=== PATIENT | male | born 1945 | race Two or more races ===

== ENCOUNTER 2018-10-22 18:21 | Emergency (ER) | payer MEDICARE, MEDICAID ==
[~2018-10-22] VITALS: Ht 170.2 cm; Wt 75.7 kg
[~2018-10-22 18:21] MED LIST: AMIO200T4 PO; AMOX-430 PO; ASPI-1152 PO; CARV3.122 PO; CHOL100044 PO; CLOP75TA15 PO; ESCI10TA PO; FOLI1TAB16 PO; PRED20TA PO; ROSU5TAB PO; SOLI10TA2 PO; TAMS0.4C34 PO; VALS80TA2 PO
--- NOTE | 2018-10-22 19:42 | NUR ---
BIB FAMILY FOR C/O FEVER AND DYSURIA. 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 AFEBRILE AT THIS TIME. + HYSTORY OF UTI. - HAMATURIA. FRANCES MELENDEZ AT THE BED SIDE.
--- NOTE | 2018-10-22 19:44 | NUR ---
URINE COLECTED AND SENT TO THE LAB
[2018-10-22 20:16] LABS: BASOPHILS # (AUTO) 0.1 /CMM (0.0-0.2); BASOPHILS % (AUTO) 0.4 % (0.0-2.0); EOSINOPHILS % (AUTO) 0.1 % (0.0-6.0); HEMATOCRIT 41 % (39-51); HEMOGLOBIN 13.7 g/dL (13.5-17.5); LYMPHOCYTES # (AUTO) 0.4 /CMM (0.8-4.8); LYMPHOCYTES % (AUTO) 2.3 % (20.0-44.0); MEAN CORPUSCULAR HGB CONC 33 g/dl (31.0-36.0); MEAN CORPUSCULAR VOLUME 91 fL (80-96); MONOCYTES # (AUTO) 0.6 /CMM (0.1-1.30); MONOCYTES % (AUTO) 3.9 % (2.0-12.0); NEUTROPHILS % (AUTO) 93.3 % (43.0-81.0); PLATELET COUNT (AUTO) 211 /CMM (150-450); RED BLOOD CELL COUNT(AUTO) 4.54 MIL/uL (4.5-6.0)
[2018-10-22 20:17] LABS: APPEARANCE,URINE Clear (CLEAR); BILIRUBIN,URINE Negative (NEGATIVE); BLOOD, URINE Trace-lysed Ery/uL (NEGATIVE); COLOR,URINE Yellow (YELLOW); KETONES,URINE Negative (NEGATIVE); LEUKOCYTE ESTERASE ,URINE Moderate (NEGATIVE); NITRITE, URINE Negative (NEGATIVE); PH,URINE 5.5 (5.0-8.0); PROTEIN,URINE 100 mg/dl (NEGATIVE); UGLUCOSE Negative (NEGATIVE); UROBILINOGEN,URINE 0.2 EU/dL (0.2)
[2018-10-22 20:22] LABS: BACTERIA,URINE Many /HPF (None Seen); RBC,URINE 0-2 /HPF (0-2); SQUAMOUS EPITHELIAL CELL,UR Few /HPF (None Seen); WBC,URINE TOO NUMEROUS TO COUN /HPF (0-3)
[2018-10-22 20:23] LABS: CALCIUM, SERUM 9.2 mg/dL (8.5-10.1); CARBON DIOXIDE 29 mmol/L (21-32); CHLORIDE 104 mmol/L (98-107); CREATININE 1.5 mg/dL (0.6-1.3); GLUCOSE 90 mg/dL (74-106); POTASSIUM 4.5 mmol/L (3.5-5.1); SODIUM SERUM 142 mmol/L (136-145); UREA NITROGEN, BLOOD 27 mg/dL (7-18)
[2018-10-22] MEDS ORDERED: CEFTRIAXONE 1GM BAG (ER ONLY) 50 ML IV ONE (21:29)
[2018-10-22] MEDS ORDERED: IV NS 0.9% 1,000 ML BAG IV ONE (21:30)
[2018-10-22] MEDS ORDERED: CEFTRIAXONE 1 G in IV D5W 50 ML IV ONE (21:30)
--- NOTE | 2018-10-22 22:29 | NUR ---
Patient discharged to home in stable condition.RX AND Written and verbal after care instructions given. Patient / family verbalized understanding of instruction.
[2018-10-22 22:35] VITALS: BP 123/73
== END 2018-10-22 22:38 | disposition home or self-care (01) ==
LOC: ER 18:21
DX: N39.0 Urinary tract infection, site not specified (principal); I10 Essential (primary) hypertension; Z98.890 Other specified postprocedural states; Z79.82 Long term (current) use of aspirin
CPT/HCPCS: 36415; 80048; 81001; 85025; 87086; 96365; 99283; J0696 ×2; J7030; J7060; 81000-TC

== ENCOUNTER 2020-12-20 19:16 | Emergency (ER) | payer MEDICARE, MEDICAID ==
[~2020-12-20] VITALS: Ht 157.5 cm; Wt 68.0 kg
[~2020-12-20 19:16] MED LIST changes: -AMIO200T4 PO; +AMIO200T5 PO; -ASPI-1152 PO; +ASPI-1420 PO
--- NOTE | 2020-12-20 19:57 | NUR ---
PATIENT STATES, "I AM GOING TO LEAVE AND COME BACK TOMORROW"
== END 2020-12-20 20:18 | disposition left against medical advice (07) ==
LOC: ER 19:17
DX: Z53.21 Procedure and treatment not carried out due to patient leaving prior to being seen by health care provider (principal); R10.11 Right upper quadrant pain; I10 Essential (primary) hypertension; Z98.890 Other specified postprocedural states

== ENCOUNTER 2021-02-12 05:06 | Inpatient (IN) | payer MEDICARE, OTHER ==
[~2021-02-12] VITALS: Ht 170.2 cm; Wt 77.1 kg
--- NOTE | 2021-02-12 05:13 | NUR ---
BIBRA 89 FROM HOME C/O VOMITING X10HRS KITCHEN OPERATOR "DARK RED". +GEN ABD PAIN. GIVEN 4MG ZOFRAN KITCHEN OPERATOR BY RA. PT A/OX4. ON O2 4LPM VIA N/C; TOLERATING AT 97%
[2021-02-12] MEDS ORDERED: ACETAMINOPHEN 650 MG/SUPP.RECT RC ONE ×2 (05:22→05:30)
[2021-02-12] MEDS ORDERED: ONDANSETRON HCL/PF 4 MG/2 ML VIAL ONE (05:22)
--- NOTE | 2021-02-12 05:25 | NUR ---
MRSA SWAB COLLECTED AND SENT TO LAB. EKG DONE.
[2021-02-12] MEDS ORDERED: IV NS 0.9% 500 ML BAG IV ONE (05:30)
[2021-02-12] MEDS ORDERED: ONDANSETRON HCL/PF 4 MG/2 ML VIAL IVP ONE (05:30)
--- NOTE | 2021-02-12 05:30 | NUR ---
INITIATED RAC #20G; PATENT AND INTACT. BLOODWORK DRAWN. COVID SWAB COLLECTED VIA EPILEPSY PHYSICIAN AND SENT TO LAB
[2021-02-12 05:39] LABS: BASOPHILS % (AUTO) 0.2 % (0.0-2.0); HEMATOCRIT 22 % (39-51); LYMPHOCYTES # (AUTO) 0.3 K/uL (0.8-4.8); LYMPHOCYTES % (AUTO) 5.1 % (20.0-44.0); MEAN CORPUSCULAR HGB CONC 33 g/dl (31.0-36.0); MEAN CORPUSCULAR VOLUME 85 fL (80-96); MONOCYTES # (AUTO) 0.2 K/uL (0.1-1.30); MONOCYTES % (AUTO) 3.5 % (2.0-12.0); NEUTROPHILS # (AUTO) 6.2 K/uL (1.8-8.9); NEUTROPHILS % (AUTO) 91.2 % (43.0-81.0); PLATELET COUNT (AUTO) 199 K/uL (150-450); RED BLOOD CELL COUNT(AUTO) 2.53 MIL/uL (4.5-6.0); WHITE BLOOD COUNT (AUTO) 6.8 K/uL (4.3-11.0)
--- NOTE | 2021-02-12 05:40 | NUR ---
LAB AID AT BEDSIDE
--- NOTE | 2021-02-12 05:43 | NUR ---
PT TAKEN TO CT
--- NOTE | 2021-02-12 05:47 | NUR ---
HEMOGLOBIN 7.0
--- NOTE | 2021-02-12 05:55 | NUR ---
BROUGHT BACK FROM CT
[2021-02-12 05:57] LABS: CALCIUM, SERUM 8.4 mg/dL (8.5-10.1); CARBON DIOXIDE 27 mmol/L (21-32); CHLORIDE 103 mmol/L (98-107); CREATININE 1.6 mg/dL (0.6-1.3); GLUCOSE 113 mg/dL (74-106); POTASSIUM 4.9 mmol/L (3.5-5.1); SODIUM SERUM 138 mmol/L (136-145); UREA NITROGEN, BLOOD 22 mg/dL (7-18)
--- NOTE | 2021-02-12 06:05 | NUR ---
COLLECTED PT'S URINE AND SENT TO LAB. AT BEDSIDE
[2021-02-12 06:12] LABS: ALANINE AMINOTRANSFERASE 13 U/L (12-78); ALBUMIN 2.7 g/dL (3.4-5.0); ALKALINE PHOSPHATASE 92 U/L (46-116); ASPARTATE AMINOTRANSFERASE 16 U/L (15-37); BILIRUBIN,DIRECT 0.3 mg/dL (0.0-0.2); BILIRUBIN,TOTAL 0.9 mg/dL (0.2-1.0); LIPASE 50 U/L (73-393); TOTAL PROTEIN, SERUM 6.3 g/dL (6.4-8.2)
[2021-02-12 06:15] LABS: BILIRUBIN,URINE Negative (NEGATIVE); COLOR,URINE YELLOW (YELLOW); LEUKOCYTE ESTERASE ,URINE Trace (NEGATIVE); NITRITE, URINE Negative (NEGATIVE); PH,URINE 5.5 (5.0-8.0); PROTEIN,URINE Negative (NEGATIVE); UGLUCOSE Negative (NEGATIVE); UROBILINOGEN,URINE 0.2 EU/dL (0.2)
--- NOTE | 2021-02-12 06:25 | NUR ---
CALLED GAGANDEEP REGARDING CT.
[2021-02-12 06:44] LABS: BAND % (MANUAL) 2 % (0.0-5.0); LYMPHOCYTES % (MANUAL) 3 % (16-48); METAMYELOCYTES % 1 % (0-0); MONOCYTES % (MANUAL) 5 % (0-11.0); NEUTROPHILS % (MANUAL) 89 (42-76)
[2021-02-12 06:48] LABS: BACTERIA,URINE Few /HPF (None Seen); SQUAMOUS EPITHELIAL CELL,UR Few /HPF (None Seen); YEAST,URINE Few /HPF (None Seen)
[2021-02-12] MEDS ORDERED: IOHEXOL-350 100 ML VIAL IV ONE (07:06)
[2021-02-12] MEDS ORDERED: CT SWABBABLE VALVE TRANS SET 1 EA INFUS.SET MC ONE (07:06)
[2021-02-12] MEDS ORDERED: IV NS 0.9% 250 ML IV ONE (07:06)
[2021-02-12] MEDS ORDERED: CLINDAMYCIN 900 MG in IV D5W 100 ML IV ONE (08:00)
[2021-02-12] MEDS ORDERED: PIPERACILLIN /TAZOBACTAM 3.375 G in IV D5W 50 ML IV ONE (08:00)
[2021-02-12] MEDS ORDERED: PANTOPRAZOLE 40 MG VIAL IV ONE (08:30)
[2021-02-12] MEDS ORDERED: APIX2.5T PO (08:50)
[2021-02-12] MEDS ORDERED: AMLO-212 PO (08:50)
[2021-02-12] MEDS ORDERED: LISI40TA13 PO (08:50)
[2021-02-12] MEDS ORDERED: FINA5TAB11 PO (08:50)
[2021-02-12] MEDS ORDERED: HYDR100T27 PO (08:50)
[2021-02-12] MEDS ORDERED: ALFU10TA10 PO (08:50)
[2021-02-12] MEDS ORDERED: GABA-532 PO (08:50)
[2021-02-12] MEDS ORDERED: PANTOPRAZOLE 40 MG VIAL ONE (09:28)
[2021-02-12] MEDS ORDERED: Z GUARD REMEDY 2 OZ OINT TP PRN (10:00)
[2021-02-12] MEDS ORDERED: ONDANSETRON HCL/PF 4 MG/2 ML VIAL IVP PRN (10:00)
[2021-02-12] MEDS ORDERED: PANTOPRAZOLE 40 MG VIAL IV SCH (10:00)
[2021-02-12] MEDS ORDERED: VANCOMYCIN 1 GM in IV D5W 250 ML IV SCH (12:00)
--- NOTE | 2021-02-12 12:20 | NUR ---
BLOOD TRANSFUSION STARTED AND VERIFIED BY 2 RN.
[2021-02-12] MEDS ORDERED: TRAMADOL HCL 50 MG TABLET ONE (16:50)
[2021-02-12] MEDS ORDERED: FAMOTIDINE/PF INJ 20 MG/2 ML VIAL IV ONE ×2 (17:00→19:52)
[2021-02-12] MEDS: TRAMADOL HCL 50 MG TABLET PO SCH ×2 (17:00→19:11)
--- NOTE | 2021-02-12 17:30 | NUR ---
going to 112.1
--- NOTE | 2021-02-12 17:45 | NUR ---
REPORT GIVEN TO ALBAN DAY FOR TG
--- NOTE | 2021-02-12 18:15 | NUR ---
INTERMEDIATE CARD TENDER OPENING NOTE RECEIVED PATIENT FROM ER - PATIENT CAME FROM HOME COMPLAINING OF N/V X2 DAYS. PATIENT HAS BEEN COUGHING UP BLOOD. PATIENT IS CURRENTLY STABLE, A/O X4. SPEAKS CLEAR KINYARWANDA. VITALS 118/48 HR 93 TEMP 99.2 O2 95%. IV ACCESS TO LEFT AND RIGHT AC #20 - INTACT AND PATENT. NO BLEDSOE NOTED. PATIENT USES URINAL. SAFETY MEASURES IN PLACE. CALL LIGHT WITHIN REACH. WILL ENDORSE TO CONSULTING ENGINEER FOR TG. Addendum: 02/12/21 at 1921 by ALBAN STILES RN TELE ADMISSION NOTE
[2021-02-12 18:27] VITALS: BP 119/48
[2021-02-12] MEDS: PIPERACILLIN /TAZOBACTAM 4.5 G in IV D5W 50 ML IV SCH ×2 (19:10→23:07)
--- NOTE | 2021-02-12 19:10 | NUR ---
RN NOTE RECEIVED PATIENT IN BED RESTING ALERT ORIENTED X4 VERBALLY RESPONSIVE,ESTONIAN SPEAKING, LITTLE MONGOLIAN ON 5L OXYGEN VIA NASAL CANNULA, O2:92% IV SITE IS ON RIGHT AC AND LEFT FOREARM INTACT PATENT,CONTIENT TO BOWEL/BLADDER SAFETY MEASURE IMPLEMENT,CALL LIGHT WITHIN REACH,BED IN LOW POSITION AND LOCKED CONTINUE TO ,MONITOR.
[2021-02-12] MEDS: IV NS 0.9% 1,000 ML IV PRN (19:35)
[2021-02-12] MEDS: GABAPENTIN 100 MG CAPSULE PO SCH (19:54)
[2021-02-12 21:21] LABS: BASOPHILS % (AUTO) 0.1 % (0.0-2.0); HEMATOCRIT 22 % (39-51); HEMOGLOBIN 7.2 g/dL (13.5-17.5); LYMPHOCYTES # (AUTO) 0.4 K/uL (0.8-4.8); MEAN CORPUSCULAR HGB CONC 33 g/dl (31.0-36.0); MEAN CORPUSCULAR VOLUME 86 fL (80-96); MONOCYTES # (AUTO) 0.2 K/uL (0.1-1.30); MONOCYTES % (AUTO) 4.2 % (2.0-12.0); NEUTROPHILS # (AUTO) 5.3 K/uL (1.8-8.9); NEUTROPHILS % (AUTO) 88.7 % (43.0-81.0); PLATELET COUNT (AUTO) 179 K/uL (150-450); RED BLOOD CELL COUNT(AUTO) 2.55 MIL/uL (4.5-6.0)
[2021-02-12 21:22] VITALS: BP 138/63
[2021-02-12 21:28] LABS: CALCIUM, SERUM 7.8 mg/dL (8.5-10.1); CARBON DIOXIDE 26 mmol/L (21-32); CHLORIDE 101 mmol/L (98-107); CREATININE 1.5 mg/dL (0.6-1.3); GLUCOSE 112 mg/dL (74-106); POTASSIUM 4.9 mmol/L (3.5-5.1); SODIUM SERUM 134 mmol/L (136-145); UREA NITROGEN, BLOOD 22 mg/dL (7-18)
[2021-02-12] MEDS: ACETAMINOPHEN 325 MG TABLET PO PRN (21:31)
--- NOTE | 2021-02-12 22:00 | NUR ---
RN NOTE RECEIVED A CALL FROM DR RENETTA ASHTON RECOVERY COORDINATOR FOR STAT BMP,CBC AND TROPONIN LEVEL AND ALSO FOR RECOVERY COORDINATOR CONSULT NOTED AND CARRIED OUT.
[2021-02-12] MEDS: VANCOMYCIN 0.75 GM in IV D5W 250 ML IV SCH (22:46)
--- NOTE | 2021-02-12 23:00 | NUR ---
RN NOTE RECEIVED A CALL FROM LAB FOR CRITICAL LAB RESULTS TROPONIN 0.503 TRADING DOWN COMPARE AT 14.3 IT WAS 0.621 NOTIFIED MD CONTINUE TO MONITOR.
--- NOTE | 2021-02-12 23:56 | NUR ---
RN NOTE PATIENT IS NPO AFTER MIDNIGHT FOR EGD TOMORROW CONTINUE TO MONITOR.
[2021-02-13] VITALS (26 sets, daily range): BP systolic 99–157; BP diastolic 44–91
[2021-02-13 04:51] LABS: ABG BASE EXCESS -7.8 mmol/L; ABG OXYGEN SATURATION 91.3 % (92.0-98.5); ABG PCO2 40.1 mmHg (35.0-45.0); ABG PH 7.278 (7.350-7.450); ABG PO2 74.3 mmHg (75.0-100.0); AaDO2 598.6 mmHg; COHb 0.7 % (0.5-1.5); MetHb 0.2 % (0.0-1.5); O2Hb 90.5 % (94.0-97.0); SITE, ABG Left Radial
[2021-02-13] MEDS: PIPERACILLIN /TAZOBACTAM 4.5 G in IV D5W 50 ML IV SCH (05:00)
--- NOTE | 2021-02-13 05:09 | NUR ---
COMPLAINT SPECIALIST NOTES PTS NOTED WITH DESATURATION WITH 80S , ON 5 LITERS OF 02 ,RT AT BEDSIDE PTS WAS PLACE ON NON REBREATHER MASK SATING 80S SPOKE TO DR CAMACHO RADIO TIME SALESPERSON RELAYED PTS CONDITION ABG RELAYED - METABOLIC ACIDOSIS WITH ORDER RT REC FOR HIGH FLOW 30LPM 100%FIO2 ORDER NOTED AND CARRIED OUT MAGGIE MCCAIN TO MONITOR PTS.CBC CMP IN AM
--- NOTE | 2021-02-13 05:15 | NUR ---
RT APPROX AT 04:15, RT CALLED TO PT ROOM BECAUSE PT DESATURATING TO 85-87%. PT ON NRB 15LPM SPO2 90-92%. RAPID RESPONSE CALLED AT 04:30 DUE TO PT DESAT TO 85%. ABG AND ORDER FOR HIGH FLOW NC OBTAINED. RN MICHELLE AT BEDSIDE. PT PLACED ON HFNC 30LPM 100%, SPO2 96-97%.
--- NOTE | 2021-02-13 05:39 | NUR ---
RN NOTE AT 4:15 AM PATIENT CALLED FOR ASSIST PATIENT DESADURATTING ABOUT 76% ON 5L OXYGEN HR UP TO 133 CHANGED POSITION ASSISTED TO SITTING UP RIGHT CHANGED TO NON REABREATHER MASK STILL O2:85% CALLED RAPID RESPOND CALLED DR Ramos ORDERED ABG BLOOD GAS NOTIFIED THE RESULT ORDERED HIGH FLOW OXYGEN AT 5:00 AM PATIENT PUT IN HIGH FLOW 30L OXYGEN FIO2:100% O2:96% CONTINUE TO MONITOR.
[2021-02-13 06:49] LABS: BASOPHILS % (AUTO) 0.2 % (0.0-2.0); HEMATOCRIT 21 % (39-51); LYMPHOCYTES # (AUTO) 0.3 K/uL (0.8-4.8); LYMPHOCYTES % (AUTO) 5.6 % (20.0-44.0); MEAN CORPUSCULAR HGB CONC 33 g/dl (31.0-36.0); MEAN CORPUSCULAR VOLUME 86 fL (80-96); MONOCYTES # (AUTO) 0.3 K/uL (0.1-1.30); MONOCYTES % (AUTO) 4.8 % (2.0-12.0); NEUTROPHILS # (AUTO) 5.4 K/uL (1.8-8.9); NEUTROPHILS % (AUTO) 89.4 % (43.0-81.0); PLATELET COUNT (AUTO) 177 K/uL (150-450); RED BLOOD CELL COUNT(AUTO) 2.41 MIL/uL (4.5-6.0)
--- NOTE | 2021-02-13 06:57 | NUR ---
RN NOTE PATIENT REMAINS ON ALERT ORIENTED X4 VERBALLY RESPONSIVE ON HIGH FLOW OXYGEN 30L FIO2:100% O2:98% PT IS NPO FOR TODAY EGD ENDORSE NEXT COMING SHIFT FOR CONTINUATION OF CARE
[2021-02-13 07:12] LABS: CHOLESTEROL 81 mg/dL (<200); HDL CHOLESTEROL 26 mg/dL (40-60); LDL 45 mg/dL (0-99); TRIGLYCERIDES 74 mg/dL (30-150)
--- NOTE | 2021-02-13 07:40 | NUR ---
RN Note: Pt received alert awake oriented x4. On high flow 30 l, settings tolerating well. HOB elevated. Brass Pourer s/s breathing distress noted in sitting position. Noted pt was screaming on nursing staff regarding waiting to see his doctor since last night. Explained pt doctor's will come on round during morning. If its urgent will call to notify. Safety measures observed. Urinal at bedside. Call light within reach. Encourage to use call light for assistance.
[2021-02-13 08:04] LABS: HEMOGLOBIN 6.9 g/dL (13.5-17.5)
--- NOTE | 2021-02-13 08:10 | NUR ---
RN Note: Received call from GI lab regarding current status, plan for EGD. Informed anesthesiologist regarding rapid response around 4:20am for desaturation, currently on high flow. Per anesthesiologist, not stable for EGD this time. Will discuss with PCP.
[2021-02-13] MEDS ORDERED: Medication Not On Formulary EA (Rosuvastatin Calcium (Crestor) 10 MG) PO SCH (09:00)
[2021-02-13] MEDS ORDERED: AMIODARONE HCL 200 MG TABLET PO SCH (09:00)
--- NOTE | 2021-02-13 09:20 | NUR ---
RN Note: 08:06am, Received call from lab hgb 6.9. Called epic regarding low Hgb and to notify that pt requesting to MD. As pt currently on NPO, will request for IV meds for pain management. Explain pt. Pt verbalized all he needs to talk to his doctor before any medication or nursing care. 0820am: Called Epic, waiting for MD response 0845am: Called Epic, waiting for MD response. Around 09:[address] Pedraza & discussed plan of care. Received new orders [place] 5/325mg PO Q4H PRN. EGD cancelled. Transfuse 1 unit PRBC. Consent signed by the pt & signed by Dr. Pedraza per ROSALEE charge nurse. Pt agreed plan.
[2021-02-13] MEDS: PANTOPRAZOLE 40 MG VIAL IV SCH (09:40)
[2021-02-13] MEDS: LISINOPRIL (20MG) 20 MG TABLET PO SCH (10:00)
[2021-02-13] MEDS: HYDROCODONE/APAP 5/325MG TABLET PO PRN (10:01)
[2021-02-13] MEDS: ESCITALOPRAM OXALATE (10 MG) 10 MG TABLET PO SCH (10:01)
[2021-02-13] MEDS: FOLIC ACID 1 MG TABLET PO SCH (10:01)
[2021-02-13] MEDS: CHOLECALCIFEROL 1,000 UNIT TABLET (VIT D3) PO SCH (10:01)
[2021-02-13 10:02] LABS: ALANINE AMINOTRANSFERASE 10 U/L (12-78); ALBUMIN 2.4 g/dL (3.4-5.0); ALKALINE PHOSPHATASE 71 U/L (46-116); ASPARTATE AMINOTRANSFERASE 18 U/L (15-37); CALCIUM, SERUM 8.1 mg/dL (8.5-10.1); CARBON DIOXIDE 24 mmol/L (21-32); CHLORIDE 102 mmol/L (98-107); CREATININE 1.8 mg/dL (0.6-1.3); GLUCOSE 115 mg/dL (74-106); MAGNESIUM 1.7 mg/dL (1.8-2.4); PHOSPHORUS 4.3 mg/dL (2.5-4.9); POTASSIUM 4.7 mmol/L (3.5-5.1); SODIUM SERUM 137 mmol/L (136-145); TOTAL PROTEIN, SERUM 5.8 g/dL (6.4-8.2); UREA NITROGEN, BLOOD 24 mg/dL (7-18)
[2021-02-13] MEDS: GABAPENTIN 100 MG CAPSULE PO SCH ×2 (10:02→17:00)
[2021-02-13] MEDS: AMLODIPINE BESYLATE 5 MG TABLET PO SCH (10:02)
[2021-02-13] MEDS: ATORVASTATIN 10 MG TABLET PO SCH (10:02)
[2021-02-13] MEDS: FINASTERIDE (5 MG) 5 MG TABLET PO SCH (10:02)
--- NOTE | 2021-02-13 10:20 | NUR ---
RN Note: Per Mary Kay martinez RN, transfer pt to ICU as received orders from Dr. Coles. AM meds given as ordered. Pt transferred to ICU per ACLS protocol with all belongings alert awake oriented X4. Independent with bed mobility. Report given by Mary Kay martinez RN to ICU assigned nurse.
--- NOTE | 2021-02-13 10:45 | NUR ---
PATIENT TRANSFERRED FROM [facility] TO ACTIVE HEMATESIS, WORSENING CXR AND FOR CLOSE MONITORING PER DR. WOLF. PATIENT AWAKE, ORIENTED, ON HIGH FLOW OXYGEN 30L/MIN AT 90% FIO2. MONITOR SHOWS CONTROLLED AFIB 80'S. KEPT HOB ELEVATED, ASPIRATION PRECAUTIONS INPLACED.
--- NOTE | 2021-02-13 11:06 | NUR ---
PRBC ONE UNIT STARTED.
--- NOTE | 2021-02-13 11:28 | NUR ---
RT Pt received awake and alert on Vapotherm 30L and 90%, pt titrated to 6L nasal cannula and is tolerating well with adequate SpO2 of 92-93%. No SOB or respiratory distress noted. Addendum: 02/13/21 at 1149 by ADRIAN TONY RT Amended: Links added.
--- NOTE | 2021-02-13 11:30 | NUR ---
NIXON RT AT BEDSIDE. PATIENT SPO2 98% ON HIGH FLOW. PATIENT PLACED ON 6 L N/C-KEPT ON HIGH FOWLERS POSITION. SPO2 REMAINS >93%. DR. WOLF MADE AWARE. OKAY TO TITRATE O2 TO KEEP SATS > 92. WILL CONTINUE TO MONITOR CLOSELY.
[2021-02-13] MEDS: methylPREDNISolone SOD SUCC 125 MG/2ML VIAL IV SCH ×2 (11:35→17:00)
[2021-02-13] MEDS: IV NS 0.9% 1,000 ML IV PRN (11:36)
[2021-02-13] MEDS: VANCOMYCIN 0.75 GM in IV D5W 250 ML IV SCH (11:38)
[2021-02-13] MEDS: PIPERACILLIN /TAZOBACTAM 3.375 G in IV D5W 100 ML IV SCH ×2 (11:55→19:48)
[2021-02-13 12:00] LABS: LYMPHOCYTES % (MANUAL) 8 % (16-48); NEUTROPHILS % (MANUAL) 86 (42-76)
[2021-02-13 12:01] LABS: REACTIVE LYMPHOCYTES 6 % (0-0)
--- NOTE | 2021-02-13 12:05 | NUR ---
PATIENT COMPLAINED OF SEVERE NECK PAIN RADIATING TO RIGHT SHOULDER. PATIENT STATED CHRONIC PAIN ON THE SAME AREA. PAIN MED GIVEN ONLY GAVE HIM [address] ESCALANTE AND OBTAINED ORDER FOR MORPHINE IV PRN.
[2021-02-13] MEDS: MORPHINE SULFATE INJ 2 MG/ML DISP.SYRIN IV PRN ×2 (12:15→17:53)
--- NOTE | 2021-02-13 12:30 | NUR ---
ONGOING BLOOD TRANSFUSION-NO TRANSFUSION REACTION NOTED.
--- NOTE | 2021-02-13 14:00 | NUR ---
BLOOD TRANSFUSION COMPLETED WITHOUT ADVERSE REACTION NOTED. VITALS STABLE. NO SOB. SEEN BY DR. CARDOZO FOR NEPHRO CONSULT.
--- NOTE | 2021-02-13 16:00 | NUR ---
NO ACUTE DISTRESS. RESPIRATIONS UNLABORED. STABLE ON O2 AT 6L N/C-SPO2 - 94%. SLEEPING INTERMITTENTLY.
[2021-02-13 16:36] LABS: BASOPHILS % (AUTO) 0.1 % (0.0-2.0); HEMATOCRIT 25 % (39-51); HEMOGLOBIN 8.2 g/dL (13.5-17.5); LYMPHOCYTES # (AUTO) 0.3 K/uL (0.8-4.8); LYMPHOCYTES % (AUTO) 6.2 % (20.0-44.0); MEAN CORPUSCULAR HGB CONC 33 g/dl (31.0-36.0); MEAN CORPUSCULAR VOLUME 87 fL (80-96); MONOCYTES # (AUTO) 0.1 K/uL (0.1-1.30); MONOCYTES % (AUTO) 1.9 % (2.0-12.0); NEUTROPHILS # (AUTO) 4.8 K/uL (1.8-8.9); NEUTROPHILS % (AUTO) 91.8 % (43.0-81.0); PLATELET COUNT (AUTO) 180 K/uL (150-450); RED BLOOD CELL COUNT(AUTO) 2.85 MIL/uL (4.5-6.0); WHITE BLOOD COUNT (AUTO) 5.2 K/uL (4.3-11.0)
[2021-02-13] MEDS: TRAMADOL HCL 50 MG TABLET PO SCH (17:00)
[2021-02-13 17:32] LABS: BAND % (MANUAL) 3 % (0.0-5.0); LYMPHOCYTES % (MANUAL) 7 % (16-48); METAMYELOCYTES % 1 % (0-0); MONOCYTES % (MANUAL) 1 % (0-11.0); NEUTROPHILS % (MANUAL) 88 (42-76)
--- NOTE | 2021-02-13 18:00 | NUR ---
POST TRANSFUSION H/H 8.. PATIENT COMPLAINED OF NECK PAIN-01/05. MORPHINE 2 MG IV ORDERED PRN GIVEN.
[2021-02-13 18:54] LABS: BILIRUBIN,URINE NEGATIVE (NEGATIVE); COLOR,URINE YELLOW (YELLOW); LEUKOCYTE ESTERASE ,URINE NEGATIVE (NEGATIVE); NITRITE, URINE NEGATIVE (NEGATIVE); PH,URINE 5.5 (5.0-8.0); PROTEIN,URINE 30 mg/dl (NEGATIVE); UGLUCOSE NEGATIVE (NEGATIVE); UROBILINOGEN,URINE 0.2 EU/dL (0.2)
--- NOTE | 2021-02-13 19:00 | NUR ---
SLEEPING. NO SIGNS OF DISTRESS. ON AND OFF HEMOPTYSIS IN SMALL AMOUNT. VITALS STABLE. SPO2 94-96% ON N/C.
[2021-02-13 19:04] LABS: BACTERIA,URINE None seen /HPF (None Seen); RBC,URINE 0-2 /HPF (0-2); SQUAMOUS EPITHELIAL CELL,UR 0-2 /HPF (None Seen); WBC,URINE 0-2 /HPF (0-3)
[2021-02-13 19:05] LABS: URINE AMORPHOUS URATE Moderate /HPF (None Seen)
[2021-02-13 19:14] LABS: CREATININE, URINE 133.4 MG/DL (30.0-125.0); URINE SODIUM, RANDOM < 5 mmol/l (40-220); URINE TOTAL PROTEIN 106.3 mg/dL (0-11.9)
--- NOTE | 2021-02-13 19:30 | NUR ---
RN NOTE RECEIVD PATIENT IN R/O COVID ISOLATION. PATIENT RESTING IN BED. A/OX4. ON OXYGEN 6L/MIN VIA NASAL CANNULA. O2 SAT 94%. RESPIRATIONS ARE EVEN AND UNLABORED. NO S/SS OB NOTED. NO C/O PA9ON AT THIS TIME. EXTERNAL TELE MONITOR READS CONTROLLED AFIB HR 62. IN NO APPARENT DISTRESS. IV ACCESS IN LFA#18 LEAKING AND INFILTRATED, REMOVED AND PLACE A L HAND #20. RAC#20 RUNNING NS@75ML/HR. BED IS LOW AND LOCKED, HOB ELEVATED IN SEMI FOWLERS, SIDE RAILS UP X2, CALL LIGHT WITHIN REACH. WILL CONTINUE TO MONITOR THROUGHOUT SHIFT.
--- NOTE | 2021-02-13 23:08 | NUR ---
RN NOTE INFORMED BY ISOTOPE TECHNICIAN THAT PATIENT IS HAVING EPISODES OF BRADYCARDIA HR DOWN TO 47. NOT SUSTAINED, INCREASED BACK TO LOW 60S.
[2021-02-14] VITALS (25 sets, daily range): BP systolic 100–136; BP diastolic 42–70
[2021-02-14] MEDS: methylPREDNISolone SOD SUCC 125 MG/2ML VIAL IV SCH ×4 (00:22→17:01)
[2021-02-14] MEDS: PIPERACILLIN /TAZOBACTAM 3.375 G in IV D5W 100 ML IV SCH ×3 (04:07→19:48)
[2021-02-14] MEDS: TRAMADOL HCL 50 MG TABLET PO SCH ×2 (04:18→15:28)
--- NOTE | 2021-02-14 04:19 | NUR ---
RN NOTE DID NOT ADMINISTER TRAMADOL 50MG . PATIENT STATES HE IS NOT IN PAIN. DOES NOT WANT PAIN MEDICATION AT THIS TIME.
[2021-02-14 05:44] LABS: HEMATOCRIT 24 % (39-51); LYMPHOCYTES # (AUTO) 0.3 K/uL (0.8-4.8); LYMPHOCYTES % (AUTO) 5.7 % (20.0-44.0); MEAN CORPUSCULAR HGB CONC 33 g/dl (31.0-36.0); MEAN CORPUSCULAR VOLUME 88 fL (80-96); MONOCYTES # (AUTO) 0.2 K/uL (0.1-1.30); NEUTROPHILS % (AUTO) 91.3 % (43.0-81.0); PLATELET COUNT (AUTO) 183 K/uL (150-450); RED BLOOD CELL COUNT(AUTO) 2.77 MIL/uL (4.5-6.0); WHITE BLOOD COUNT (AUTO) 5.5 K/uL (4.3-11.0)
[2021-02-14 05:58] LABS: ALANINE AMINOTRANSFERASE 14 U/L (12-78); ALBUMIN 2.4 g/dL (3.4-5.0); ALKALINE PHOSPHATASE 65 U/L (46-116); ASPARTATE AMINOTRANSFERASE 21 U/L (15-37); BILIRUBIN,TOTAL 0.9 mg/dL (0.2-1.0); CALCIUM, SERUM 8.4 mg/dL (8.5-10.1); CARBON DIOXIDE 25 mmol/L (21-32); CHLORIDE 102 mmol/L (98-107); CREATININE 1.8 mg/dL (0.6-1.3); GLUCOSE 134 mg/dL (74-106); MAGNESIUM 2.2 mg/dL (1.8-2.4); PHOSPHORUS 4.8 mg/dL (2.5-4.9); POTASSIUM 5.4 mmol/L (3.5-5.1); SODIUM SERUM 134 mmol/L (136-145); TOTAL PROTEIN, SERUM 6.5 g/dL (6.4-8.2); UREA NITROGEN, BLOOD 33 mg/dL (7-18)
[2021-02-14 06:02] LABS: IRON, SERUM 32 ug/dl (50-175); TOTAL IRON BINDING CAPACITY 196 ug/dl (250-450)
--- NOTE | 2021-02-14 06:43 | NUR ---
RN NOTE R/O COVID ISOLATION. RESTING IN BED. A/OX4. REMAINS ON OXYGEN 6L/MIN VIA NASAL CANNULA. O2 SAT INCREASED TO 96-100%. NO RESP DISTRESS. NO SOB. CONTINUES TO COUGH BRIGHT RED BLOOD, . NO PAIN. TELE MONITOR READS CONTROLLED AFIB HR 62, THERE WAS EPISODES OF JOVANAN TO 47 BUT NOT SUSTAINED.NO DISTRESS. IV IN RAC#20 CURRENTLY RUNNING [employer]. BED REMAIN LOW AND LOCKED, HOB ELEVATED IN SEMI FOWLERS, SIDE RAILS UP X2, CALL LIGHT WITHIN REACH. WILL ENDORSE TO ONCOMING SHIFT.
--- NOTE | 2021-02-14 07:00 | NUR ---
RN NOTES RECEIVED PT ON BED, A/Ox4, ON 6L O2 N/C , O2 SAT WNL, ON TELE A.FIB, HR IN 70'S , NS AT 75CC/HR RUNNING , IV SITES CLEAN, DRY AND INTACT, SR UP x3, CALL LIGHT WITHIN EASY REACH, BED LOCKED AND IN LOWEST POSITION, CONTINUE TO MONITOR.
[2021-02-14] MEDS: DOXYCYCLINE 100 MG in IV D5W 100 ML IV SCH ×2 (08:20→21:03)
[2021-02-14] MEDS: CHOLECALCIFEROL 1,000 UNIT TABLET (VIT D3) PO SCH (08:21)
[2021-02-14] MEDS: PANTOPRAZOLE 40 MG VIAL IV SCH (08:21)
[2021-02-14] MEDS: FINASTERIDE (5 MG) 5 MG TABLET PO SCH (08:23)
[2021-02-14] MEDS: ATORVASTATIN 10 MG TABLET PO SCH (08:23)
[2021-02-14] MEDS: LISINOPRIL (20MG) 20 MG TABLET PO SCH (08:23)
[2021-02-14] MEDS: ESCITALOPRAM OXALATE (10 MG) 10 MG TABLET PO SCH (08:23)
[2021-02-14] MEDS: FOLIC ACID 1 MG TABLET PO SCH (08:23)
[2021-02-14] MEDS: GABAPENTIN 100 MG CAPSULE PO SCH ×2 (08:23→16:39)
[2021-02-14] MEDS: AMLODIPINE BESYLATE 5 MG TABLET PO SCH (09:00)
[2021-02-14] MEDS ORDERED: SODIUM POLYSTYRENE SULFONATE 15 G/60 ML BOTTLE PO ONE (10:30)
--- NOTE | 2021-02-14 12:00 | NUR ---
RN NOTES PT SPITTING UP BLOODY PHLEGM AT TIMES, ON 5 L O2 NC, O2 SAT WNL, CONTINUE TO MONITOR .
[2021-02-14] MEDS ORDERED: IV NS 0.9% 1,000 ML IV ONE (12:30)
--- NOTE | 2021-02-14 17:44 | NUR ---
RN NOTES NO SIGNS OF DISTRESS NOTED, ON AND OFF HEMOPTYSIS IN SMALL AMOUNT. VSS STABLE ,CONTINUE TO MONITOR .
--- NOTE | 2021-02-14 18:16 | NUR ---
RN NOTES PT REMAINS ON 5L O2 N/C ,O2 SAT WNL, WILL ENDORSE TO GUYLINE OPERATOR NURSE FOR CONTINUITY OF CARE .
--- NOTE | 2021-02-14 19:45 | NUR ---
RN NOTES RECEIVED PATIENT AWAKE ALERT ORIENTED. TALKING TO HIS PHONE AND ASSISTED TO THE BEDSIDE COMMODE. PATIENT IS AOX4 ABLE TO VERBALIZED NEEDS AND CONCERN. NO ACUTE RESPIRATORY DISTRESS ON O2 5-LPM VIA NC SATURATION 96%. SINUS ARRHYTHMIA WITH FIRST DEGREE AVB ON MONITOR. NO ACTIVE BLEEDING PRESENT. DENIES N/V OR DIZZINESS. IV SITE ON RAC AND LH WITH NS @ 100 ML/HR INTACT AND PATENT. NEEDS ATTENDED KEPT CALL LIGHT KEPT WITHIN EASY REACH. WILL CLOSELY MONITOR.
[2021-02-14] MEDS: MORPHINE SULFATE INJ 2 MG/ML DISP.SYRIN IV PRN (19:47)
[2021-02-15] VITALS (24 sets, daily range): BP systolic 117–167; BP diastolic 56–92
[2021-02-15] MEDS: methylPREDNISolone SOD SUCC 125 MG/2ML VIAL IV SCH ×4 (00:32→17:35)
[2021-02-15 03:49] LABS: OCCULT BLOOD STOOL POSITIVE (NEGATIVE)
[2021-02-15] MEDS: PIPERACILLIN /TAZOBACTAM 3.375 G in IV D5W 100 ML IV SCH ×3 (04:17→21:37)
[2021-02-15 04:30] LABS: CALCIUM, SERUM 8.3 mg/dL (8.5-10.1); CARBON DIOXIDE 24 mmol/L (21-32); CHLORIDE 105 mmol/L (98-107); CREATININE 1.9 mg/dL (0.6-1.3); GLUCOSE 141 mg/dL (74-106); POTASSIUM 4.6 mmol/L (3.5-5.1); SODIUM SERUM 140 mmol/L (136-145); UREA NITROGEN, BLOOD 43 mg/dL (7-18)
[2021-02-15] MEDS: TRAMADOL HCL 50 MG TABLET PO SCH ×2 (05:29→17:35)
--- NOTE | 2021-02-15 06:57 | NUR ---
RN NOTES PATIENT ASLEEP WELL ON BED. CONTINUE ON O2 5-6LPM VIA NC SATURATION BETWEEN 95-97%. AFEBRILE. VSS WITHOUT PRESSORS. NO ACTIVE BLEEDING SHOWS. NO SOB. SINUS ARRHYTHMIA WITH FIRST DEGREE AVB ON MONITOR HR <60 LOWEST 42 PATIENT IS ASYMPTOMATIC. NO SIGNIFICANT CHANGES THROUGHOUT THE SHIFT. PATIENT WANTED TO KNOW THE RESULT OF COVID PCR TEST. KEPT PT CLEAN AND COMFORTABLE IN BED. CALL LIGHT KEPT WITHIN EASY REACH.
--- NOTE | 2021-02-15 07:05 | NUR ---
RN NOTES RECEIVED PT ON BED, A/Ox4, ON 6L O2 N/C , O2 SAT WNL, ON TELE A.FIB, HR IN 50'S , NS AT 75CC/HR RUNNING , IV SITES CLEAN, DRY AND INTACT, SR UP x3, CALL LIGHT WITHIN EASY REACH, BED LOCKED AND IN LOWEST POSITION, CONTINUE TO MONITOR.
[2021-02-15 08:20] LABS: BASOPHILS % (AUTO) 0.1 % (0.0-2.0); HEMATOCRIT 22 % (39-51); HEMOGLOBIN 7.4 g/dL (13.5-17.5); LYMPHOCYTES # (AUTO) 0.3 K/uL (0.8-4.8); LYMPHOCYTES % (AUTO) 3.6 % (20.0-44.0); MEAN CORPUSCULAR HGB CONC 33 g/dl (31.0-36.0); MEAN CORPUSCULAR VOLUME 87 fL (80-96); MONOCYTES # (AUTO) 0.3 K/uL (0.1-1.30); MONOCYTES % (AUTO) 3.5 % (2.0-12.0); NEUTROPHILS # (AUTO) 7.1 K/uL (1.8-8.9); NEUTROPHILS % (AUTO) 92.8 % (43.0-81.0); PLATELET COUNT (AUTO) 192 K/uL (150-450); RED BLOOD CELL COUNT(AUTO) 2.56 MIL/uL (4.5-6.0); WHITE BLOOD COUNT (AUTO) 7.7 K/uL (4.3-11.0)
[2021-02-15] MEDS: PANTOPRAZOLE 40 MG VIAL IV SCH (08:35)
[2021-02-15] MEDS: LISINOPRIL (20MG) 20 MG TABLET PO SCH (08:36)
[2021-02-15] MEDS: CHOLECALCIFEROL 1,000 UNIT TABLET (VIT D3) PO SCH (08:36)
[2021-02-15] MEDS: FOLIC ACID 1 MG TABLET PO SCH (08:37)
[2021-02-15] MEDS: AMLODIPINE BESYLATE 5 MG TABLET PO SCH (08:37)
[2021-02-15] MEDS: ATORVASTATIN 10 MG TABLET PO SCH (08:37)
[2021-02-15] MEDS: GABAPENTIN 100 MG CAPSULE PO SCH ×2 (08:37→17:36)
[2021-02-15] MEDS: FINASTERIDE (5 MG) 5 MG TABLET PO SCH (08:37)
[2021-02-15] MEDS: ESCITALOPRAM OXALATE (10 MG) 10 MG TABLET PO SCH (08:38)
[2021-02-15] MEDS: DOXYCYCLINE 100 MG in IV D5W 100 ML IV SCH ×2 (08:45→21:37)
[2021-02-15 10:07] LABS: *ANA ANTI-CENTROMERE B AB <0.2 AI (0.0-0.9); *ANA ANTI-DNA(DS) AB, QN 7 IU/mL (0-9); *ANA ANTI-JO-1 <0.2 AI (0.0-0.9); *ANA ANTICHROMATIN ANTIBODY >8.0 AI (0.0-0.9); *ANA RNP ANTIBODIES <0.2 AI (0.0-0.9); *ANA SJOGREN'S ANTI-SS-A <0.2 AI (0.0-0.9); *ANA SJOGREN'S ANTI-SS-B <0.2 AI (0.0-0.9); *ANAANTI-SCLERODERMA-70 AB 0.2 AI (0.0-0.9); *ANASMITH AB <0.2 AI (0.0-0.9)
--- NOTE | 2021-02-15 14:00 | NUR ---
RN NOTES VSS STABLE, AT THE BEDSIDE, CONTINUE TO MONITOR
--- NOTE | 2021-02-15 18:26 | NUR ---
RN NOTES PT RESTING ON BED, ON AND OFF HEMOPTYSIS IN SMALL AMOUNT, NO DISTESS NOTED, WILL ENDORSE TO VP ORGANIZATIONAL DEVELOPMENT NURSE FOR CONTINUITY OF CARE.
--- NOTE | 2021-02-15 19:00 | NUR ---
ACTIVITY THERAPY TEACHER. INITIAL ASSESSMENT. RECEIVED THE PT REST ON THE BED. AWAKE, ALERT. FOLLOW COMMANDS. TRANSPORTATION MAINTENANCE SUPERVISOR SHOWING AFIB. OXYGEN 6L VIA NASAL CANNULA. SAT 98%. NO ACUTE DISTRESS NOTED, HOB ELEVATED. IV RT HAND 20G. TKO ON. HOB ELEVATED. WILL CONTINUE TO MONITOR VITALS.
[2021-02-16] VITALS (24 sets, daily range): BP systolic 99–181; BP diastolic 65–102
[2021-02-16] MEDS: methylPREDNISolone SOD SUCC 125 MG/2ML VIAL IV SCH ×5 (00:04→21:18)
[2021-02-16] MEDS: PIPERACILLIN /TAZOBACTAM 3.375 G in IV D5W 100 ML IV SCH ×3 (03:41→20:20)
--- NOTE | 2021-02-16 03:48 | NUR ---
KEYBOARD INSTRUMENT REPAIRER.AM CARE GIVEN. REMAINING SAME OXYGEN TOLERATED WELL. SAT IS 96%. RAILROAD WATCHMAN SHOWING IN IV LT HAND 20G. TKO RUNNING IN AND OUT SINUS AND AFIB, HOB ELEVATED. AFEBRILE. WILL CONTINUE TO MONITOR VITALS.
[2021-02-16] MEDS: TRAMADOL HCL 50 MG TABLET PO SCH ×3 (04:56→17:00)
[2021-02-16 05:00] LABS: CALCIUM, SERUM 8.2 mg/dL (8.5-10.1); CARBON DIOXIDE 25 mmol/L (21-32); CHLORIDE 106 mmol/L (98-107); CREATININE 1.7 mg/dL (0.6-1.3); GLUCOSE 133 mg/dL (74-106); POTASSIUM 3.7 mmol/L (3.5-5.1); SODIUM SERUM 142 mmol/L (136-145); UREA NITROGEN, BLOOD 44 mg/dL (7-18)
--- NOTE | 2021-02-16 07:48 | NUR ---
SITE SAFETY MANAGER NOTE RECEIVED PATIENT IN THE BED ALERT ON THE TELE MONITOR SINUS JOVANNA, WITH HR 42 TO 66. PATIENT ON 6L NC SATURATION 97% AT THIS TIME. PATIENT HAVING BREAKFAST ATE LIQUID DIET 100%. PATIENT HAS LEFT HAND IV HL INTACT AND FLUSH WELL. STILL HAS COUGHING WITH BLOOD, SMALL AMOUNT. NOT IN DISTRESS AT THIS TIME. ALL NEEDS ATTENDED. CALL LIGHT WITHIN REACH. BED IN LOWEST AND LOCKED POSITION. WILL CONTINUE TO MONITOR.
[2021-02-16 08:07] LABS: BASOPHILS % (AUTO) 0.2 % (0.0-2.0); HEMATOCRIT 24 % (39-51); HEMOGLOBIN 7.7 g/dL (13.5-17.5); LYMPHOCYTES # (AUTO) 0.3 K/uL (0.8-4.8); LYMPHOCYTES % (AUTO) 3.2 % (20.0-44.0); MEAN CORPUSCULAR HGB CONC 33 g/dl (31.0-36.0); MEAN CORPUSCULAR VOLUME 88 fL (80-96); MONOCYTES # (AUTO) 0.3 K/uL (0.1-1.30); MONOCYTES % (AUTO) 3.9 % (2.0-12.0); NEUTROPHILS # (AUTO) 8.1 K/uL (1.8-8.9); NEUTROPHILS % (AUTO) 92.7 % (43.0-81.0); PLATELET COUNT (AUTO) 208 K/uL (150-450); RED BLOOD CELL COUNT(AUTO) 2.67 MIL/uL (4.5-6.0); WHITE BLOOD COUNT (AUTO) 8.7 K/uL (4.3-11.0)
[2021-02-16] MEDS: CHOLECALCIFEROL 1,000 UNIT TABLET (VIT D3) PO SCH (08:10)
[2021-02-16] MEDS: FOLIC ACID 1 MG TABLET PO SCH (08:10)
[2021-02-16] MEDS: GABAPENTIN 100 MG CAPSULE PO SCH ×3 (08:10→17:00)
[2021-02-16] MEDS: ESCITALOPRAM OXALATE (10 MG) 10 MG TABLET PO SCH (08:11)
[2021-02-16] MEDS: LISINOPRIL (20MG) 20 MG TABLET PO SCH (08:11)
[2021-02-16] MEDS: FINASTERIDE (5 MG) 5 MG TABLET PO SCH (08:11)
[2021-02-16] MEDS: PANTOPRAZOLE 40 MG VIAL IV SCH (08:11)
[2021-02-16] MEDS: ATORVASTATIN 10 MG TABLET PO SCH (08:12)
[2021-02-16] MEDS: AMLODIPINE BESYLATE 5 MG TABLET PO SCH (08:12)
[2021-02-16] MEDS: DOXYCYCLINE 100 MG in IV D5W 100 ML IV SCH ×2 (08:33→21:19)
--- NOTE | 2021-02-16 09:39 | NUR ---
DENTAL FINANCIAL COORDINATOR NOTE DOCTOR PELEG AT BEDSIDE, UPDATED ON PATIENT CONDITION, AWARE PATIENT ON 6L NC, SATURATION 97%, ALSO NOTIFIED STILL HAS A COUGH WITH SMALL AMOUNT OF BLOOD. WILL CONTINUE TO MONITOR. MID LINE NURSE CAME AND PLACED MIDLINE LEFT UPPER ARM.
--- NOTE | 2021-02-16 10:40 | NUR ---
UNIFORM MAKER NOTE ROUNDS MADE, CHECKED PATIENT. OFFERED REPOSITION BUT PATIENT STRONGLY REFUSED DESPITE EXPLANATION.
[2021-02-16 13:06] LABS: *ANCANTIMYELOPEROXIDASE (MPO) 56.9 U/mL (0.0-9.0); *ANCANTIPROTEINASE 3 (PR-3) AB <3.5 U/mL (0.0-3.5)
[2021-02-16] MEDS: ACETAMINOPHEN 325 MG TABLET PO PRN (13:22)
--- NOTE | 2021-02-16 14:38 | NUR ---
ELECTRIC MOTOR REPAIRER NOTE ROUNDS MADE, PATIENT HAD A BM, CLEANED AND REPOSITIONED. TYLENOL GIVEN FOR 3/10, RT SHOULDER PAIN. COMFORT MEASURES PROVIDED, AT BEDSIDE. CALL LIGHT IN REACH. ALL NEEDS INTENDED.
[2021-02-16] MEDS: TAMSULOSIN 0.4 MG CAP.SR.24H PO SCH (15:51)
--- NOTE | 2021-02-16 18:05 | NUR ---
cvicu rn note able to eat dinner, able to eat 100%,all needs attended ,not in distress
--- NOTE | 2021-02-16 18:31 | NUR ---
CARGOMAN NOTE PATIENT IN THE BED, ALERT AND AWAKE, FAMILY AT BEDSIDE. NO SOB. STILL ON 6L NC. SATURATION 96% AT THIS TIME. TELEMETRY STILL AFIB, HR 62. PATIENT HAS A MIDLINE, FLUSHED WELL, CALL LIGHT WITHIN REACH, NEEDS ATTENDED, WILL CONTINUE TO MONITOR. NO BLEEDING WITH A COUGH AT THIS TIME NOTED.
--- NOTE | 2021-02-16 19:45 | NUR ---
SOFTWARE PROGRAMMER OPENING NOTE RECEIVED PATIENT IN THE BED A/O X4 ON BEDSIDE MONITOR SINUS BRADYCARDIA/ ARRYTHMIA AND A-FIB WITH HR 50-60'S BASELINE. PATIENT ON 6L VIA NC SATURATION 97% NO SOB OR RESP. DISTRESS NOTED. (L) UA MIDLINE NOTED, FLUSHED AND PATENT WITH CLEAN AND DRY DRESSING. SCANT AMOUNT OF HEMATEMESIS PRESENT. WATER PITCHER REFILLED. URINAL WITHIN REACH. PT CURRENTLY ON BEDREST AND ENCOURAGE TO USE CALL LIGHT FOR ALL NEED. SAFETY MEASURES IMPLEMENTED: BED LOCKED IN LOWEST POSITION, CALL LIGHT WITHIN REACH., SIDE RAILS UP X3, BED ALARM ON. NO ACUTE DISTRESS NOTED AT THIS TIME.
[2021-02-16] MEDS: hydrALAZINE HCL 25 MG TABLET PO PRN (20:13)
--- NOTE | 2021-02-16 20:30 | NUR ---
DAIRY EQUIPMENT MECHANIC NOTE PRN DOSE OF 100 MG HYDRALAZINE PO GIVEN FOR BLOOD PRESSURE 176/79. PT. A/O X4 AND HR STABLE. NO ACUTE DISTRESS NOTED.
[2021-02-17] VITALS (24 sets, daily range): BP systolic 123–167; BP diastolic 55–91
[2021-02-17] MEDS: HYDROCODONE/APAP 5/325MG TABLET PO PRN ×3 (01:46→12:58)
--- NOTE | 2021-02-17 02:00 | NUR ---
PIEROGI MAKER NOTE PRN DOSE OF NORCO GIVEN FOR PAIN LEVEL 7/10 LOCATED IN POSTERIOR LOWER BACK. VSS, A/OX4. NO OTHER DISTRESS NOTED.
[2021-02-17] MEDS: PIPERACILLIN /TAZOBACTAM 3.375 G in IV D5W 100 ML IV SCH ×3 (04:04→20:27)
[2021-02-17] MEDS: TRAMADOL HCL 50 MG TABLET PO SCH ×2 (04:52→16:03)
[2021-02-17] MEDS: methylPREDNISolone SOD SUCC 125 MG/2ML VIAL IV SCH ×3 (04:52→21:31)
[2021-02-17 04:53] LABS: BASOPHILS % (AUTO) 0.1 % (0.0-2.0); HEMATOCRIT 23 % (39-51); HEMOGLOBIN 7.6 g/dL (13.5-17.5); LYMPHOCYTES # (AUTO) 0.3 K/uL (0.8-4.8); LYMPHOCYTES % (AUTO) 3.4 % (20.0-44.0); MEAN CORPUSCULAR HGB CONC 33 g/dl (31.0-36.0); MEAN CORPUSCULAR VOLUME 88 fL (80-96); MONOCYTES # (AUTO) 0.3 K/uL (0.1-1.30); MONOCYTES % (AUTO) 3.4 % (2.0-12.0); NEUTROPHILS # (AUTO) 8.4 K/uL (1.8-8.9); NEUTROPHILS % (AUTO) 93.1 % (43.0-81.0); PLATELET COUNT (AUTO) 222 K/uL (150-450); RED BLOOD CELL COUNT(AUTO) 2.63 MIL/uL (4.5-6.0)
[2021-02-17 05:18] LABS: CALCIUM, SERUM 8.2 mg/dL (8.5-10.1); CARBON DIOXIDE 25 mmol/L (21-32); CHLORIDE 106 mmol/L (98-107); CREATININE 1.7 mg/dL (0.6-1.3); GLUCOSE 138 mg/dL (74-106); MAGNESIUM 2.3 mg/dL (1.8-2.4); PHOSPHORUS 3.5 mg/dL (2.5-4.9); POTASSIUM 4.1 mmol/L (3.5-5.1); SODIUM SERUM 142 mmol/L (136-145); UREA NITROGEN, BLOOD 41 mg/dL (7-18)
--- NOTE | 2021-02-17 06:23 | NUR ---
COMMUNITY SERVICE DIRECTOR CLOSING NOTE PATIENT IN THE BED A/O X4 ON BEDSIDE MONITOR SINUS BRADYCARDIA/ ARRYTHMIA AND A-FIB WITH HR 50-60'S BASELINE. PATIENT ON 6L VIA NC SATURATION 97% NO SOB OR RESP. DISTRESS NOTED. (L) UA MIDLINE NOTED, FLUSHED AND PATENT WITH CLEAN AND DRY DRESSING. SCANT AMOUNT OF HEMATEMESIS PRESENT. URINAL WITHIN REACH. PT CURRENTLY ON BEDREST AND ENCOURAGE TO USE CALL LIGHT FOR ALL NEED. ALL NEEDS AND ORDERS MET THROUGHOUT SHIFT. PT. KEPT CLEAN AND DRY. SAFETY MEASURES IMPLEMENTED: BED LOCKED IN LOWEST POSITION, CALL LIGHT WITHIN REACH, SIDE RAILS UP X3, BED ALARM ON. NO ACUTE DISTRESS NOTED AT THIS TIME. WILL ENDORSE CONTINUITY OF CARE TO MORNING SHIFT RN.
--- NOTE | 2021-02-17 07:42 | NUR ---
VALUE STREAM MANAGER OPENING NOTE Pt is Awake, A/O X 4, verbally responsive, on 6L 02 via NC, Telemonitor sinus arythmia/sinus abbey/PVC's 1st degree AV block. Denies any distress or discomfort. Safety precautions implemented, bed locked in lowest position, call light within reach. Will monitor for any evidence of bleeding.
[2021-02-17] MEDS: PANTOPRAZOLE 40 MG VIAL IV SCH (08:04)
[2021-02-17] MEDS: CHOLECALCIFEROL 1,000 UNIT TABLET (VIT D3) PO SCH (08:07)
[2021-02-17] MEDS: LISINOPRIL (20MG) 20 MG TABLET PO SCH (08:09)
[2021-02-17] MEDS: TAMSULOSIN 0.4 MG CAP.SR.24H PO SCH (08:10)
[2021-02-17] MEDS: AMLODIPINE BESYLATE 5 MG TABLET PO SCH (08:10)
[2021-02-17] MEDS: FOLIC ACID 1 MG TABLET PO SCH (08:10)
[2021-02-17] MEDS: ESCITALOPRAM OXALATE (10 MG) 10 MG TABLET PO SCH (08:11)
[2021-02-17] MEDS: ATORVASTATIN 10 MG TABLET PO SCH (08:11)
[2021-02-17] MEDS: FINASTERIDE (5 MG) 5 MG TABLET PO SCH (08:12)
[2021-02-17] MEDS: GABAPENTIN 100 MG CAPSULE PO SCH ×2 (08:23→16:03)
[2021-02-17] MEDS: DOXYCYCLINE 100 MG in IV D5W 100 ML IV SCH ×2 (08:24→21:31)
[2021-02-17] MEDS: CYCLOPHOSPHAMIDE 25 MG PO SCH (10:30)
--- NOTE | 2021-02-17 11:21 | NUR ---
RN NOTE 1030-Cytoxan not available per Px, Dr. Acevedo aware. CM to arrange plan for Transfer to [facility] for plasmapheresis, per Dr. Acevedo prefers to be admitted to ICU at [facility] as well. CM communicated.
[2021-02-17] MEDS: MORPHINE SULFATE INJ 2 MG/ML DISP.SYRIN IV PRN (11:50)
[2021-02-17] MEDS: ENSURE CLEAR 237 ML LIQUID (MIX BERRY) PO SCH ×2 (12:04→16:03)
[2021-02-17 13:07] LABS: *ANCA ATYPICAL p-ANCA <1:20 titer (Neg:<1:20); *ANCA CYTOPLASMIC (C-ANCA) <1:20 titer (Neg:<1:20)
--- NOTE | 2021-02-17 18:59 | NUR ---
COMMUNITY OUTREACH COORDINATOR CLOSING NOTES Pt is awake, A/O X 4, On 3 L 02 via NC, satting 93-96%. Complains of pain on neck/right shoulder states it is chronic pain with mild relief after administration of Morphine/[place]. Telereading Noted with scant amount of tinged red sputum after coughing small amount x 4 episodes throughout the shift. No hematuria, no BM. Remains on clear liquidt diet >50% amount eaten. Safety precautions implemented, bed locked in lowest position, call light within reach. visited updated of status. Pending transfer to another Acute ICU for plasmapheresis, still pending per CM notes. Addendum: 02/17/21 at 1911 by J LUIS SR RN Addendum: Telereading sinus arrhythmia, sinus bradychardia, PVC's 1st degree AV block
--- NOTE | 2021-02-17 19:48 | NUR ---
TUG MASTER OPENING NOTE RECEIVED PATIENT IN THE BED A/O X4 ON BEDSIDE MONITOR SINUS BRADYCARDIA/ ARRHYTHMIA AND A-FIB WITH HR 50-60'S BASELINE. PATIENT ON 3L VIA NC SATURATION 97% NO SOB OR RESP. DISTRESS NOTED. (L) UA MIDLINE NOTED, FLUSHED AND PATENT WITH CLEAN AND DRY DRESSING. SCANT AMOUNT OF HEMATEMESIS PRESENT. WATER PITCHER REFILLED. URINAL WITHIN REACH. PT CURRENTLY ON BEDREST AND ENCOURAGE TO USE CALL LIGHT FOR ALL NEED. PENDING CASE MANAGEMENT FOLLOW-UP FOR PLACEMENT AT [facility] FOR PLASMAPHERESIS. SAFETY MEASURES IMPLEMENTED: BED LOCKED IN LOWEST POSITION, CALL LIGHT WITHIN REACH., SIDE RAILS UP X3, BED ALARM ON. NO ACUTE DISTRESS NOTED AT THIS TIME.
[2021-02-18] VITALS (24 sets, daily range): BP systolic 102–172; BP diastolic 62–93
[2021-02-18 04:20] LABS: HEMATOCRIT 25 % (39-51); HEMOGLOBIN 8.2 g/dL (13.5-17.5); LYMPHOCYTES # (AUTO) 0.4 K/uL (0.8-4.8); LYMPHOCYTES % (AUTO) 3.5 % (20.0-44.0); MEAN CORPUSCULAR HGB CONC 33 g/dl (31.0-36.0); MEAN CORPUSCULAR VOLUME 87 fL (80-96); MONOCYTES # (AUTO) 0.3 K/uL (0.1-1.30); MONOCYTES % (AUTO) 2.9 % (2.0-12.0); NEUTROPHILS # (AUTO) 10.9 K/uL (1.8-8.9); NEUTROPHILS % (AUTO) 93.6 % (43.0-81.0); PLATELET COUNT (AUTO) 260 K/uL (150-450); RED BLOOD CELL COUNT(AUTO) 2.82 MIL/uL (4.5-6.0); WHITE BLOOD COUNT (AUTO) 11.6 K/uL (4.3-11.0)
[2021-02-18 04:31] LABS: CALCIUM, SERUM 8.2 mg/dL (8.5-10.1); CARBON DIOXIDE 25 mmol/L (21-32); CHLORIDE 105 mmol/L (98-107); CREATININE 1.5 mg/dL (0.6-1.3); GLUCOSE 134 mg/dL (74-106); MAGNESIUM 2.3 mg/dL (1.8-2.4); PHOSPHORUS 3.1 mg/dL (2.5-4.9); POTASSIUM 3.6 mmol/L (3.5-5.1); SODIUM SERUM 142 mmol/L (136-145); UREA NITROGEN, BLOOD 39 mg/dL (7-18)
[2021-02-18] MEDS: methylPREDNISolone SOD SUCC 125 MG/2ML VIAL IV SCH ×3 (05:02→21:15)
[2021-02-18] MEDS: TRAMADOL HCL 50 MG TABLET PO SCH ×2 (05:02→17:00)
--- NOTE | 2021-02-18 05:15 | NUR ---
OFFSET PLATE PREPARATION SUPERVISOR NOTE SPOKE WITH REMI AT [facility] WHO IS ARRANGING TRANSFER DETAILS FOR PT. PER REMI, PT HAS BEEN ACCEPTED FOR TRANSFER BUT NO ICU BED AVAILABLE AT THIS TIME. STATES SHE WILL STAY IN CONTACT IF THEIR IS ONE TODAY. CALL BACK NUMBER FOR NURSES AND MD'S [phone]
--- NOTE | 2021-02-18 06:21 | NUR ---
CARPENTER REPAIRER CLOSING NOTE PATIENT IN THE BED A/O X4 ON BEDSIDE MONITOR SINUS BRADYCARDIA/ ARRHYTHMIA WITH HR 50-60'S BASELINE. PATIENT ON 3L VIA NC SATURATION 97% NO SOB OR RESP. DISTRESS NOTED. (L) UA MIDLINE NOTED, FLUSHED AND PATENT WITH CLEAN AND DRY DRESSING. SCANT AMOUNT OF HEMATEMESIS PRESENT. URINAL WITHIN REACH. PT CURRENTLY ON BEDREST AND ENCOURAGE TO USE CALL LIGHT FOR ALL NEED. ALL NEEDS AND ORDERS MET THROUGHOUT SHIFT. PT. KEPT CLEAN AND DRY. PT. AWAITING PLACEMENT INTO ICU BED AT [facility] FOR PLASMAPHERESIS. SAFETY MEASURES IMPLEMENTED: BED LOCKED IN LOWEST POSITION, CALL LIGHT WITHIN REACH, SIDE RAILS UP X3, BED ALARM ON. NO ACUTE DISTRESS NOTED AT THIS TIME. WILL ENDORSE CONTINUITY OF CARE TO MORNING SHIFT RN.
--- NOTE | 2021-02-18 07:30 | NUR ---
RN NOTES PATIENT IN THE BED DISPLAYING NO S/S OF ACUTE DISTRESS, PT ENDORSES NO PAIN AND BREATHING IS EVEN AND UNLABORED. PT IS A&OX4, BEDSIDE MONITOR SHOWS SB/ARRHYTHMIA W/ INCREASING TO 70'S UPON ROUSAL. PT ON 3L VIA NC SATURATION 97% NO SOB OR RESP. DISTRESS NOTED. L UA MIDLINE NOTED, FLUSHED AND PATENT WITH CLEAN AND DRY DRESSING. SAFETY MEASURES IN PLACE, BED LOCKED AND IN LOWEST POSITION, CALL LIGHT WITHIN REACH, SIDE RAILS UP X3, BED ALARM ON, PT INSTRUCTED TO CALL FOR ASSISTANCE. RN WILL MONITOR AND TREAT PT THROUGHOUT SHIFT.
[2021-02-18] MEDS: ENSURE CLEAR 237 ML LIQUID (MIX BERRY) PO SCH ×3 (08:54→17:07)
[2021-02-18] MEDS: CYCLOPHOSPHAMIDE 25 MG PO SCH (09:00)
[2021-02-18] MEDS: PANTOPRAZOLE 40 MG VIAL IV SCH (09:04)
[2021-02-18] MEDS: GABAPENTIN 100 MG CAPSULE PO SCH ×2 (09:05→17:07)
[2021-02-18] MEDS: FOLIC ACID 1 MG TABLET PO SCH (09:05)
[2021-02-18] MEDS: FINASTERIDE (5 MG) 5 MG TABLET PO SCH (09:05)
[2021-02-18] MEDS: AMLODIPINE BESYLATE 5 MG TABLET PO SCH (09:05)
[2021-02-18] MEDS: ESCITALOPRAM OXALATE (10 MG) 10 MG TABLET PO SCH (09:05)
[2021-02-18] MEDS: ATORVASTATIN 10 MG TABLET PO SCH (09:05)
[2021-02-18] MEDS: CHOLECALCIFEROL 1,000 UNIT TABLET (VIT D3) PO SCH (09:05)
[2021-02-18] MEDS: TAMSULOSIN 0.4 MG CAP.SR.24H PO SCH (09:05)
[2021-02-18] MEDS: LISINOPRIL (20MG) 20 MG TABLET PO SCH (09:06)
--- NOTE | 2021-02-18 17:10 | NUR ---
RN NOTE ULTRAM 50 MG NOT GIVEN. PT VERBALIZES NO PAIN. NO REASON TO GIVE ANALGESIA.
--- NOTE | 2021-02-18 19:00 | NUR ---
RN NOTES PATIENT IN THE BED DISPLAYING NO S/S OF ACUTE DISTRESS, PT ENDORSES NO PAIN AND BREATHING IS EVEN AND UNLABORED. PT IS A&OX4, BEDSIDE MONITOR SHOWS SINUS ARRHYTHMIA. PT ON 3L 02 NC. L UA MIDLINE, PATIENT AND INTACT. SBAR AND REPORT GIVEN TO TRAINING PROFESSIONAL RN. PT ENDORSED FOR TG.
--- NOTE | 2021-02-18 19:48 | NUR ---
BUFFING WHEEL RAKER OPENING NOTE RECEIVED PATIENT RESTING IN THE BED A/O X4 ON BEDSIDE MONITOR SINUS BRADYCARDIA/ ARRHYTHMIA WITH 1ST DEGREE AV BLOCK AND PVC'S WITH HR 50-60'S BASELINE. PATIENT ON 3L VIA NC SATURATION 97% NO SOB OR RESP. DISTRESS NOTED. COUGH WITH SCANT BLOOD TINGED SPUTUM NOTED. (L) UA MIDLINE NOTED, FLUSHED AND PATENT WITH CLEAN AND DRY DRESSING. WATER PITCHER REFILLED. URINAL WITHIN REACH. PT CURRENTLY ON BEDREST AND ENCOURAGED TO USE CALL LIGHT FOR ALL NEEDS. PENDING CASE MANAGEMENT FOLLOW-UP [facility], PER DR. WOLF PT IS OKAY TO BE PLACED IN TELEMETRY UNIT AND NOT ICU. SAFETY MEASURES IMPLEMENTED: BED LOCKED IN LOWEST POSITION, CALL LIGHT WITHIN REACH., SIDE RAILS UP X3, BED ALARM ON. NO ACUTE DISTRESS NOTED AT THIS TIME.
[2021-02-19] VITALS (17 sets, daily range): BP systolic 137–167; BP diastolic 59–110
[2021-02-19] MEDS: methylPREDNISolone SOD SUCC 125 MG/2ML VIAL IV SCH (04:55)
[2021-02-19] MEDS: TRAMADOL HCL 50 MG TABLET PO SCH ×2 (04:55→16:56)
[2021-02-19 04:56] LABS: BASOPHILS % (AUTO) 0.1 % (0.0-2.0); HEMATOCRIT 24 % (39-51); LYMPHOCYTES # (AUTO) 0.5 K/uL (0.8-4.8); MEAN CORPUSCULAR HGB CONC 33 g/dl (31.0-36.0); MEAN CORPUSCULAR VOLUME 88 fL (80-96); MONOCYTES # (AUTO) 0.3 K/uL (0.1-1.30); MONOCYTES % (AUTO) 2.4 % (2.0-12.0); NEUTROPHILS # (AUTO) 11.6 K/uL (1.8-8.9); NEUTROPHILS % (AUTO) 93.5 % (43.0-81.0); PLATELET COUNT (AUTO) 250 K/uL (150-450); RED BLOOD CELL COUNT(AUTO) 2.77 MIL/uL (4.5-6.0); WHITE BLOOD COUNT (AUTO) 12.4 K/uL (4.3-11.0)
[2021-02-19 05:04] LABS: CALCIUM, SERUM 7.9 mg/dL (8.5-10.1); CARBON DIOXIDE 28 mmol/L (21-32); CHLORIDE 105 mmol/L (98-107); CREATININE 1.2 mg/dL (0.6-1.3); GLUCOSE 132 mg/dL (74-106); POTASSIUM 3.4 mmol/L (3.5-5.1); SODIUM SERUM 141 mmol/L (136-145); UREA NITROGEN, BLOOD 34 mg/dL (7-18)
--- NOTE | 2021-02-19 06:31 | NUR ---
STOCK PULLER CLOSING NOTE PATIENT SLEEPING IN THE BED A/O X4 ON BEDSIDE MONITOR SINUS ARRHYTHMIA WITH HR 50-60'S BASELINE. PATIENT ON 3L VIA NC SATURATION 97% NO SOB OR RESP. DISTRESS NOTED. (L) UA MIDLINE NOTED, FLUSHED AND PATENT WITH CLEAN AND DRY DRESSING. NON PRODUCTIVE COUGH. URINAL WITHIN REACH. PT CURRENTLY ON BEDREST AND ENCOURAGE TO USE CALL LIGHT FOR ALL NEED. ALL NEEDS AND ORDERS MET THROUGHOUT SHIFT. PT. REFUSED BED BATH THROUGHOUT SHIFT; NO BOWEL MOVEMENT. PT. AWAITING PLACEMENT INTO TELEMETRY BED AT [facility] FOR PLASMAPHERESIS. SAFETY MEASURES IMPLEMENTED: BED LOCKED IN LOWEST POSITION, CALL LIGHT WITHIN REACH, SIDE RAILS UP X3, BED ALARM ON. NO ACUTE DISTRESS NOTED AT THIS TIME. WILL ENDORSE CONTINUITY OF CARE TO MORNING SHIFT RN.
[2021-02-19] MEDS: ENSURE CLEAR 237 ML LIQUID (MIX BERRY) PO SCH ×3 (08:00→17:30)
[2021-02-19] MEDS: AMLODIPINE BESYLATE 5 MG TABLET PO SCH (08:25)
[2021-02-19] MEDS: LISINOPRIL (20MG) 20 MG TABLET PO SCH (08:26)
[2021-02-19] MEDS: ATORVASTATIN 10 MG TABLET PO SCH (08:28)
[2021-02-19] MEDS: ESCITALOPRAM OXALATE (10 MG) 10 MG TABLET PO SCH (08:28)
[2021-02-19] MEDS: TAMSULOSIN 0.4 MG CAP.SR.24H PO SCH (08:28)
[2021-02-19] MEDS: FINASTERIDE (5 MG) 5 MG TABLET PO SCH (08:28)
[2021-02-19] MEDS: CHOLECALCIFEROL 1,000 UNIT TABLET (VIT D3) PO SCH (08:28)
[2021-02-19] MEDS: FOLIC ACID 1 MG TABLET PO SCH (08:28)
[2021-02-19] MEDS: PANTOPRAZOLE 40 MG VIAL IV SCH (08:29)
[2021-02-19] MEDS: GABAPENTIN 100 MG CAPSULE PO SCH ×2 (08:31→16:55)
[2021-02-19] MEDS ORDERED: POTASSIUM CHLORIDE 20 MEQ TAB.PRT.SR PO ONE (10:00)
--- NOTE | 2021-02-19 10:00 | NUR ---
LEFT VOICEMAIL TO [facility] - [phone]. FOR PLACEMENT.WILL CALL BACK
--- NOTE | 2021-02-19 16:38 | NUR ---
DATABASE SECURITY EXPERT NOTES RECEIVED PATIENT FROM ICU, REPORT RECEIVED FROM ANA, PATIENT IS AWAKE, A&O X 4, ABLE TO MAKE NEEDS KNOWN. HOOKED TO EXTERNAL MONITOR SINUS BRADYCARDIA/ ARRHYTHMIA WITH 1ST DEGREE AV BLOCK AND PVC'S WITH HR 50-60'S BASELINE. PATIENT ON 3L VIA NC SATURATION 97% NO SOB OR RESP. DISTRESS NOTED. NOTED WITH (L) UA MIDLINE NOTED, FLUSHED AND PATENT. PT CURRENTLY ON BEDREST AND ENCOURAGED TO USE CALL LIGHT IF ASSISTANCE IS NEEDED. PENDING CASE MANAGEMENT FOLLOW-UP FOR PLACEMENT AT [facility] FOR PLASMAPHERESIS. SAFETY MEASURES IMPLEMENTED: BED LOCKED IN LOWEST POSITION, CALL LIGHT WITHIN REACH., SIDE RAILS UP X2, BED ALARM ON. WILL CONTINUE TO MONITOR ACCORDINGLY. Addendum: 02/19/21 at 1646 by DION MA RN PATIENT WAS RECIEVED FORM ICU AT 1245 PM.
--- NOTE | 2021-02-19 18:20 | NUR ---
RN NOTE RECEIVED PATIENT IN BED RESTING ALERT ORIENTED X4 VERBALLY RESPONSIVE ON 3L OXYGEN VIA NASAL CANNULA, O2:99% IV SITE IS ON LEFT UPPER ARM MIDLINE INTACT PATENT,CONTIENT TO BOWEL/BLADDER,SAFETY MEASURE IMPLEMENT BED IN LOW POSITON AND LOCKED CALL LIGHT WITHIN REACH CONTINUE TO MONITOR.
--- NOTE | 2021-02-19 18:34 | NUR ---
PRE CODER CLOSING NOTES PATIENT IN BED, AWAKE, A&O X 4, ABLE TO MAKE NEEDS KNOWN. HOOKED TO EXTERNAL MONITOR SINUS BRADYCARDIA/ ARRHYTHMIA WITH 1ST DEGREE AV BLOCK AND PVC'S WITH HR 50-60'S BASELINE. PATIENT ON 3L VIA NC SATURATION 97% NO SOB OR RESP. DISTRESS NOTED. NOTED WITH (L) UA MIDLINE NOTED, FLUSHES AND PATENT. FOR PLACEMENT AT [facility] FOR PLASMAPHERESIS, AWAITING BED AVAILABILITY. SAFETY MEASURES IMPLEMENTED: BED LOCKED IN LOWEST POSITION, CALL LIGHT WITHIN REACH., SIDE RAILS UP X2, BED ALARM ON. ALL NEEDS ATTENDED AND MET, DUE MEDS GIVEN ORDERED. WILL ENDORSE TO ONCOMING SHIFT FOR TG.
[2021-02-20] VITALS: BP 155/71
[2021-02-20 04:00] VITALS: BP 154/75
[2021-02-20] MEDS: TRAMADOL HCL 50 MG TABLET PO SCH ×2 (04:40→16:05)
[2021-02-20 06:39] LABS: BASOPHILS % (AUTO) 0.1 % (0.0-2.0); CALCIUM, SERUM 7.4 mg/dL (8.5-10.1); HEMATOCRIT 26 % (39-51); HEMOGLOBIN 8.4 g/dL (13.5-17.5); LYMPHOCYTES # (AUTO) 0.6 K/uL (0.8-4.8); LYMPHOCYTES % (AUTO) 4.2 % (20.0-44.0); MAGNESIUM 2.3 mg/dL (1.8-2.4); MEAN CORPUSCULAR HGB CONC 33 g/dl (31.0-36.0); MEAN CORPUSCULAR VOLUME 88 fL (80-96); MONOCYTES # (AUTO) 0.7 K/uL (0.1-1.30); MONOCYTES % (AUTO) 4.9 % (2.0-12.0); NEUTROPHILS # (AUTO) 12.6 K/uL (1.8-8.9); NEUTROPHILS % (AUTO) 90.8 % (43.0-81.0); PHOSPHORUS 3.4 mg/dL (2.5-4.9); PLATELET COUNT (AUTO) 251 K/uL (150-450); POTASSIUM 4.2 mmol/L (3.5-5.1); RED BLOOD CELL COUNT(AUTO) 2.91 MIL/uL (4.5-6.0); WHITE BLOOD COUNT (AUTO) 13.9 K/uL (4.3-11.0)
--- NOTE | 2021-02-20 06:40 | NUR ---
RN NOTE PATIENT REMAINS ON ALERT ORIENTEDX4 VERBALLY RESPONSIVE ON 3L OXYGEN O2:99% NO SOB NOT ACUTE DISTRESS NOTED,IV SITE IS ON LEFT UPPER ARM MID LINE INTACT PATENT,ALL DUE MEDS GIVEN MD ORDERED KEEP CLEAN AND DRY ALL THE TIME ENDORSE NEXT COMING SHIFT FOR CONTINUATION OF CARE.
--- NOTE | 2021-02-20 07:21 | NUR ---
RN NOTE PATIENT IS IN BED WITH HOB AT SEMI FOWLERS POSITION. PATIENT IS ON 3L NC. PATIENT IS AOX4. ELMA MIDLINE IS PATENT AND INTACT. BED IS LOCKED IN THE LOWEST POSITION, 3 GUARD RAILS RAISED, CALL BENNETT WITHIN REACH AND ALL HOSPITAL SAFETY PRECAUTIONS ARE BEING FOLLOWED. WILL CONTINUE TO MONITOR THROUGHOUT SHIFT.
[2021-02-20 08:00] VITALS: BP 161/79
[2021-02-20] MEDS: FOLIC ACID 1 MG TABLET PO SCH (08:28)
[2021-02-20] MEDS: LISINOPRIL (20MG) 20 MG TABLET PO SCH (08:28)
[2021-02-20] MEDS: predniSONE 20 MG TABLET PO SCH (08:28)
[2021-02-20] MEDS: CHOLECALCIFEROL 1,000 UNIT TABLET (VIT D3) PO SCH (08:28)
[2021-02-20] MEDS: ATORVASTATIN 10 MG TABLET PO SCH (08:28)
[2021-02-20] MEDS: GABAPENTIN 100 MG CAPSULE PO SCH ×2 (08:28→16:06)
[2021-02-20] MEDS: TAMSULOSIN 0.4 MG CAP.SR.24H PO SCH (08:28)
[2021-02-20] MEDS: AMLODIPINE BESYLATE 5 MG TABLET PO SCH (08:28)
[2021-02-20] MEDS: FINASTERIDE (5 MG) 5 MG TABLET PO SCH (08:29)
[2021-02-20] MEDS: ENSURE CLEAR 237 ML LIQUID (MIX BERRY) PO SCH ×3 (08:29→16:06)
[2021-02-20] MEDS: PANTOPRAZOLE 40 MG VIAL IV SCH (08:29)
[2021-02-20] MEDS: ESCITALOPRAM OXALATE (10 MG) 10 MG TABLET PO SCH (08:29)
--- NOTE | 2021-02-20 09:00 | NUR ---
RN NOTE CYTOXAN ORDER SHOULD ARRIVE LATER TODAY PER PHARMACY. WILL ADMINISTER ONCE AVAILABLE.
[2021-02-20 12:00] VITALS: BP 141/78
[2021-02-20 16:00] VITALS: BP 163/78
[2021-02-20] MEDS: CYCLOPHOSPHAMIDE 25 MG PO SCH (16:06)
--- NOTE | 2021-02-20 18:44 | NUR ---
RN NOTE PATIENT IS IN BED WITH HOB AT SEMI FOWLERS POSITION. PATIENT IS ON 3L NC. PATIENT IS AOX4. ELMA MIDLINE IS PATENT AND INTACT. BED IS LOCKED IN THE LOWEST POSITION, 3 GUARD RAILS RAISED, CALL BENNETT WITHIN REACH AND ALL HOSPITAL SAFETY PRECAUTIONS ARE BEING FOLLOWED. ALL DUE MEDS GIVEN AND PATIENT REMAINED STABLE THROUGHOUT SHIFT WILL ENDORSE TO DRAW TENDER RN.
--- NOTE | 2021-02-20 19:27 | NUR ---
game design instructor Opening Notes Patient was last seen awake in bed resting. Patient's A/Ox4. Patient's on 3L of oxygen via nasal cannula with no respiratory distress noted. Patient's connected to a tele monitor with no cardiac distress noted. Patient has a ELMA midline. Patient's in no acute distress at this time. Safety measures in place: Bed locked, bed alarm on, side rails upx3, and call light within reach of the patient. Will continue to monitor the patient.
[2021-02-20 20:01] VITALS: BP 153/81
[2021-02-21] VITALS: BP_SYST 146; BP_SYST 149; BP_DIAS 69; BP_DIAS 83
[2021-02-21 04:00] VITALS: BP 153/81
[2021-02-21] MEDS: TRAMADOL HCL 50 MG TABLET PO SCH ×2 (04:39→16:30)
--- NOTE | 2021-02-21 04:40 | NUR ---
MEDIATION COMMISSIONER NOTES PATIENT REFUSED HIS SCHEDULED TRAMADOL AT 0439. PER PT, HE WAS IN NO PAIN. WILL CONTINUE TO MONITOR THE PATIENT.
--- NOTE | 2021-02-21 06:37 | NUR ---
cloth dyer Closing Notes Patient was last seen sleeping in bed. Patient's A/Ox4. Patient's on 3L of oxygen via nasal cannula with no respiratory distress noted. Patient's connected to a tele monitor with no cardiac distress noted. Patient has a ELMA midline, which is intact, patient, and flushing well. Patient's in no acute distress at this time. Safety measures in place: Bed locked, bed alarm on, side rails upx3, and call light within reach of the patient. Will endorse care to the day shift nurse.
[2021-02-21 07:10] LABS: BASOPHILS % (AUTO) 0.2 % (0.0-2.0); EOSINOPHILS % (AUTO) 0.1 % (0.0-6.0); HEMATOCRIT 28 % (39-51); LYMPHOCYTES # (AUTO) 0.8 K/uL (0.8-4.8); LYMPHOCYTES % (AUTO) 5.4 % (20.0-44.0); MEAN CORPUSCULAR HGB CONC 33 g/dl (31.0-36.0); MEAN CORPUSCULAR VOLUME 89 fL (80-96); MONOCYTES # (AUTO) 0.5 K/uL (0.1-1.30); MONOCYTES % (AUTO) 3.4 % (2.0-12.0); NEUTROPHILS # (AUTO) 13.6 K/uL (1.8-8.9); NEUTROPHILS % (AUTO) 90.9 % (43.0-81.0); PLATELET COUNT (AUTO) 237 K/uL (150-450); RED BLOOD CELL COUNT(AUTO) 3.09 MIL/uL (4.5-6.0); WHITE BLOOD COUNT (AUTO) 14.9 K/uL (4.3-11.0)
--- NOTE | 2021-02-21 07:21 | NUR ---
DENTURE FINISHER OPENING NOTE PATIENT IN BED, A&OX4, NC AT 3L WITH NO SIGNS OF LABORED BREATHING. LEFT UPPER ARM MIDLINE, INTACT. BED LOCKED IN LOW POSITION, 3 SIDE RAILS UP, CALL LIGHT WITHIN REACH, ALL SAFETY PROTOCOL FOLLOWED. WILL CONTINUE TO MONITOR DURING SHIFT.
[2021-02-21 07:28] LABS: CALCIUM, SERUM 7.9 mg/dL (8.5-10.1); CREATININE 0.9 mg/dL (0.6-1.3); POTASSIUM 4.3 mmol/L (3.5-5.1)
[2021-02-21 08:00] VITALS: BP 140/76
[2021-02-21] MEDS: ENSURE CLEAR 237 ML LIQUID (MIX BERRY) PO SCH ×3 (08:00→16:30)
[2021-02-21] MEDS: CYCLOPHOSPHAMIDE 25 MG PO SCH (08:22)
[2021-02-21] MEDS: LISINOPRIL (20MG) 20 MG TABLET PO SCH (08:23)
[2021-02-21] MEDS: FINASTERIDE (5 MG) 5 MG TABLET PO SCH (08:23)
[2021-02-21] MEDS: CHOLECALCIFEROL 1,000 UNIT TABLET (VIT D3) PO SCH (08:23)
[2021-02-21] MEDS: TAMSULOSIN 0.4 MG CAP.SR.24H PO SCH (08:23)
[2021-02-21] MEDS: ATORVASTATIN 10 MG TABLET PO SCH (08:23)
[2021-02-21] MEDS: ESCITALOPRAM OXALATE (10 MG) 10 MG TABLET PO SCH (08:24)
[2021-02-21] MEDS: FOLIC ACID 1 MG TABLET PO SCH (08:24)
[2021-02-21] MEDS: predniSONE 20 MG TABLET PO SCH (08:24)
[2021-02-21] MEDS: GABAPENTIN 100 MG CAPSULE PO SCH ×2 (08:24→16:24)
[2021-02-21] MEDS: AMLODIPINE BESYLATE 5 MG TABLET PO SCH (08:24)
[2021-02-21] MEDS: PANTOPRAZOLE 40 MG VIAL IV SCH (08:26)
[2021-02-21 12:00] VITALS: BP 146/63
[2021-02-21 16:00] VITALS: BP 142/64
--- NOTE | 2021-02-21 18:40 | NUR ---
RN CLOSING NOTE PATIENT AWAKE IN BED AT THIS TIME, ON 3L O2 NC WITH NO SIGNS OF LABORED BREATHING AT THIS TIME. A&O X4. PATIENT IS ON TELE MONITOR WITH NO DISTRESS NOTED. LEFT UA MIDLINE IN PLACE AND PATENT. BED IS LOCKED AND IN LOWEST POSITION, 3 SIDE RAILS UP, CALL LIGHT WITHIN REACH. ALL SAFETY PRECAUTIONS ARE IMPLEMENTED. WILL ENDORSE TO RECORD LABEL INTERN NURSE.
[2021-02-21 20:00] VITALS: BP 144/76
[2021-02-22] VITALS: BP 149/69
[2021-02-22 04:00] VITALS: BP 162/88
[2021-02-22] MEDS: TRAMADOL HCL 50 MG TABLET PO SCH ×2 (04:56→16:39)
[2021-02-22] MEDS: hydrALAZINE HCL 25 MG TABLET PO PRN (04:59)
[2021-02-22 06:31] LABS: BASOPHILS % (AUTO) 0.2 % (0.0-2.0); EOSINOPHILS % (AUTO) 0.3 % (0.0-6.0); HEMATOCRIT 29 % (39-51); HEMOGLOBIN 9.2 g/dL (13.5-17.5); LYMPHOCYTES # (AUTO) 0.7 K/uL (0.8-4.8); LYMPHOCYTES % (AUTO) 5.1 % (20.0-44.0); MEAN CORPUSCULAR HGB CONC 32 g/dl (31.0-36.0); MEAN CORPUSCULAR VOLUME 89 fL (80-96); MONOCYTES # (AUTO) 0.6 K/uL (0.1-1.30); MONOCYTES % (AUTO) 4.3 % (2.0-12.0); NEUTROPHILS # (AUTO) 12.4 K/uL (1.8-8.9); NEUTROPHILS % (AUTO) 90.1 % (43.0-81.0); PLATELET COUNT (AUTO) 232 K/uL (150-450); RED BLOOD CELL COUNT(AUTO) 3.19 MIL/uL (4.5-6.0); WHITE BLOOD COUNT (AUTO) 13.8 K/uL (4.3-11.0)
[2021-02-22 07:17] LABS: MAGNESIUM 2.1 mg/dL (1.8-2.4); PHOSPHORUS 3.3 mg/dL (2.5-4.9); POTASSIUM 4.9 mmol/L (3.5-5.1)
--- NOTE | 2021-02-22 07:28 | NUR ---
RECREATION SPECIALIST OPENING NOTE Pt is awake, A/O X 4, no respiratory distress, no SOB. On 3 liters 02 via NC. Denies any pain. Safety precautions implemented, bed locked in lowest position, call light within reach.
--- NOTE | 2021-02-22 07:31 | NUR ---
RN NOTES, NO SIGNIFICANT CHANGE IN CONDITION DURING THE NIGHT, AWAITING TO BE TRANSFER TO HIGHER LEVEL OF CARE, [facility] CALLED ASKING FOR PATIENT STABLE, THEY STATED WILL CALL TODAY, WILL ENDORSED CNT OF CARE TO ONCOMING NURSE.
[2021-02-22 08:00] VITALS: BP 135/67
[2021-02-22] MEDS: CHOLECALCIFEROL 1,000 UNIT TABLET (VIT D3) PO SCH (08:07)
[2021-02-22] MEDS: ATORVASTATIN 10 MG TABLET PO SCH (08:08)
[2021-02-22] MEDS: predniSONE 20 MG TABLET PO SCH (08:08)
[2021-02-22] MEDS: FINASTERIDE (5 MG) 5 MG TABLET PO SCH (08:09)
[2021-02-22] MEDS: FOLIC ACID 1 MG TABLET PO SCH (08:09)
[2021-02-22] MEDS: GABAPENTIN 100 MG CAPSULE PO SCH ×2 (08:09→16:39)
[2021-02-22] MEDS: TAMSULOSIN 0.4 MG CAP.SR.24H PO SCH (08:09)
[2021-02-22] MEDS: ESCITALOPRAM OXALATE (10 MG) 10 MG TABLET PO SCH (08:10)
[2021-02-22] MEDS: PANTOPRAZOLE 40 MG VIAL IV SCH (08:12)
[2021-02-22] MEDS: CYCLOPHOSPHAMIDE 25 MG PO SCH (08:12)
[2021-02-22] MEDS: AMLODIPINE BESYLATE 5 MG TABLET PO SCH (08:13)
[2021-02-22] MEDS: LISINOPRIL (20MG) 20 MG TABLET PO SCH (08:13)
[2021-02-22] MEDS: ENSURE CLEAR 237 ML LIQUID (MIX BERRY) PO SCH ×3 (08:14→16:39)
[2021-02-22 12:00] VITALS: BP 130/65
[2021-02-22 16:00] VITALS: BP 137/84
--- NOTE | 2021-02-22 16:35 | NUR ---
RN NOTE Pt 02 sat on room air 88-90%. On 02 2 liters satting 93-95%.
--- NOTE | 2021-02-22 18:58 | NUR ---
RN CLOSING NOTE Patient is awake, A/O X4, no respiratory distress, no SOB. On 3 liters 02 via NC, satting at 98%. Telereading sinus abbey 1st degree AV block. Left upper arm Midline with no s/sx of infiltration. Safety precautions implemented, bed locked in lowest position, call light within reach. Expecting for bed availability in another acute hospital for plasmapheresis, and patient aware.
[2021-02-22 20:00] VITALS: BP 154/67
[2021-02-23] VITALS: BP 147/66
[2021-02-23 04:00] VITALS: BP 144/80
[2021-02-23] MEDS: TRAMADOL HCL 50 MG TABLET PO SCH ×2 (05:42→17:04)
[2021-02-23 06:35] LABS: BASOPHILS % (AUTO) 0.1 % (0.0-2.0); EOSINOPHILS % (AUTO) 0.1 % (0.0-6.0); HEMATOCRIT 27 % (39-51); HEMOGLOBIN 8.9 g/dL (13.5-17.5); LYMPHOCYTES # (AUTO) 0.7 K/uL (0.8-4.8); LYMPHOCYTES % (AUTO) 3.9 % (20.0-44.0); MEAN CORPUSCULAR HGB CONC 33 g/dl (31.0-36.0); MEAN CORPUSCULAR VOLUME 90 fL (80-96); MONOCYTES # (AUTO) 0.9 K/uL (0.1-1.30); MONOCYTES % (AUTO) 5.1 % (2.0-12.0); NEUTROPHILS # (AUTO) 16.4 K/uL (1.8-8.9); NEUTROPHILS % (AUTO) 90.8 % (43.0-81.0); PLATELET COUNT (AUTO) 200 K/uL (150-450); RED BLOOD CELL COUNT(AUTO) 3.03 MIL/uL (4.5-6.0); WHITE BLOOD COUNT (AUTO) 18.1 K/uL (4.3-11.0)
[2021-02-23 07:09] LABS: CALCIUM, SERUM 7.7 mg/dL (8.5-10.1); POTASSIUM 4.6 mmol/L (3.5-5.1)
--- NOTE | 2021-02-23 07:14 | NUR ---
FINISHING ROOM OPERATOR OPENING NOTE Patient is asleep, arousable to stimuli, no respiratory distress, no SOB. On 3 liters via NC, satting >95%. Telereading sinus bradychardia with PVC's 1st degree AV block. Safety precautions implemented, bed locked in lowest position, call light within reach.
--- NOTE | 2021-02-23 07:17 | NUR ---
RN NOTES, NO SIGNIFICANT CHANGE IN CONDITION DURING THE NIGHT, AWAITING TO BE TRANSFER TO HIGHER LEVEL OF CARE, [facility] CALLED STATING THEY STILL DOTN HAVE BED AVAILABLE, ENDORSED TO J LUIS DAY FOR CONTINUATION OF CARE.
[2021-02-23 08:00] VITALS: BP 136/63
[2021-02-23] MEDS: CHOLECALCIFEROL 1,000 UNIT TABLET (VIT D3) PO SCH (08:08)
[2021-02-23] MEDS: ESCITALOPRAM OXALATE (10 MG) 10 MG TABLET PO SCH (08:08)
[2021-02-23] MEDS: TAMSULOSIN 0.4 MG CAP.SR.24H PO SCH (08:08)
[2021-02-23] MEDS: LISINOPRIL (20MG) 20 MG TABLET PO SCH (08:09)
[2021-02-23] MEDS: predniSONE 20 MG TABLET PO SCH (08:09)
[2021-02-23] MEDS: GABAPENTIN 100 MG CAPSULE PO SCH ×2 (08:10→17:04)
[2021-02-23] MEDS: AMLODIPINE BESYLATE 5 MG TABLET PO SCH (08:10)
[2021-02-23] MEDS: FINASTERIDE (5 MG) 5 MG TABLET PO SCH (08:10)
[2021-02-23] MEDS: FOLIC ACID 1 MG TABLET PO SCH (08:11)
[2021-02-23] MEDS: CYCLOPHOSPHAMIDE 25 MG PO SCH (08:11)
[2021-02-23] MEDS: ATORVASTATIN 10 MG TABLET PO SCH (08:11)
[2021-02-23] MEDS: PANTOPRAZOLE 40 MG VIAL IV SCH (08:13)
[2021-02-23] MEDS: ENSURE CLEAR 237 ML LIQUID (MIX BERRY) PO SCH ×3 (08:13→17:04)
[2021-02-23 12:00] VITALS: BP 137/50
--- NOTE | 2021-02-23 15:02 | NUR ---
patient room air sat 86% at rest,per md need home oxygen,cm notified.
[2021-02-23 16:00] VITALS: BP 143/80
--- NOTE | 2021-02-23 19:45 | NUR ---
RN NOTE RECEIVED PT AWAKE, ALERT AND ORIENTED X4. NOT IN ANY DISTRESS. PT DENIES ANY SOB OR PAIN. ON O2 AT 2L. SINUS RHYTHM ON TELE MONITOR. ELMA MIDLINE PATENT AND INTACT, FLUSHES WELL. ALL SAFETY MEASURES IN PLACE PER PROTOCOL. WILL CONTINUE TO MONITOR.
[2021-02-23 20:00] VITALS: BP 137/95
[2021-02-24] VITALS: BP 135/82
[2021-02-24 04:00] VITALS: BP 140/72
[2021-02-24] MEDS: TRAMADOL HCL 50 MG TABLET PO SCH ×2 (05:00→16:07)
--- NOTE | 2021-02-24 05:07 | NUR ---
RN NOTE PATIENT REFUSED TO TAKE DUE TRAMADOL. DENIES ANY PAIN.
[2021-02-24 06:30] LABS: BASOPHILS # (AUTO) 0.1 K/uL (0.0-0.2); BASOPHILS % (AUTO) 0.3 % (0.0-2.0); EOSINOPHILS % (AUTO) 0.1 % (0.0-6.0); HEMATOCRIT 27 % (39-51); HEMOGLOBIN 8.7 g/dL (13.5-17.5); LYMPHOCYTES # (AUTO) 0.8 K/uL (0.8-4.8); MEAN CORPUSCULAR HGB CONC 33 g/dl (31.0-36.0); MEAN CORPUSCULAR VOLUME 89 fL (80-96); MONOCYTES # (AUTO) 1.1 K/uL (0.1-1.30); MONOCYTES % (AUTO) 5.8 % (2.0-12.0); NEUTROPHILS % (AUTO) 89.8 % (43.0-81.0); PLATELET COUNT (AUTO) 159 K/uL (150-450); RED BLOOD CELL COUNT(AUTO) 2.98 MIL/uL (4.5-6.0); WHITE BLOOD COUNT (AUTO) 18.9 K/uL (4.3-11.0)
[2021-02-24 06:38] LABS: CALCIUM, SERUM 7.7 mg/dL (8.5-10.1); POTASSIUM 4.4 mmol/L (3.5-5.1)
--- NOTE | 2021-02-24 06:47 | NUR ---
RN NOTE PT CONTINUE ON O2 THERAPY AT 2L. NOT IN ANY DISTRESS. DENIES ANY SOB OF PAIN. NO SIGNIFICANT CHANGES NOTED. MIDLINE ON ELMA REMAIN PATENT AND INTACT FLUSHES WELL. PT CONTINENT, USES URINAL. ALL NEEDS ATTENDED. SAFETY MEASURES MAINTAINED. WILL ENDORSE TO NEXT SHIFT NURSE FOR TG.
--- NOTE | 2021-02-24 07:22 | NUR ---
RN OPENING NOTE PATIENT IN BED, ON 2L NC WITH NO SIGNS OF LABORED BREATHING AT THIS TIME. A&OX4, ELMA MIDLINE IN PLACE. BED LOCKED AND IN LOWEST POSITION, CALL LIGHT WITHIN REACH. ALL SAFETY MEASURES IMPLEMENTED. WILL MONITOR THROUGHOUT SHIFT.
[2021-02-24 08:00] VITALS: BP 138/81
[2021-02-24] MEDS: ENSURE CLEAR 237 ML LIQUID (MIX BERRY) PO SCH ×3 (08:00→17:08)
[2021-02-24] MEDS: predniSONE 20 MG TABLET PO SCH (09:11)
[2021-02-24] MEDS: FOLIC ACID 1 MG TABLET PO SCH (09:11)
[2021-02-24] MEDS: GABAPENTIN 100 MG CAPSULE PO SCH ×2 (09:11→16:07)
[2021-02-24] MEDS: ATORVASTATIN 10 MG TABLET PO SCH (09:11)
[2021-02-24] MEDS: PANTOPRAZOLE 40 MG TABLET.DR PO SCH (09:11)
[2021-02-24] MEDS: CHOLECALCIFEROL 1,000 UNIT TABLET (VIT D3) PO SCH (09:11)
[2021-02-24] MEDS: LISINOPRIL (20MG) 20 MG TABLET PO SCH (09:11)
[2021-02-24] MEDS: TAMSULOSIN 0.4 MG CAP.SR.24H PO SCH (09:12)
[2021-02-24] MEDS: FINASTERIDE (5 MG) 5 MG TABLET PO SCH (09:12)
[2021-02-24] MEDS: AMLODIPINE BESYLATE 5 MG TABLET PO SCH (09:12)
[2021-02-24] MEDS: ESCITALOPRAM OXALATE (10 MG) 10 MG TABLET PO SCH (09:12)
[2021-02-24] MEDS: CYCLOPHOSPHAMIDE 25 MG PO SCH (09:13)
[2021-02-24 12:00] VITALS: BP 131/58
[2021-02-24 16:00] VITALS: BP 121/68
--- NOTE | 2021-02-24 16:06 | NUR ---
RN NOTE SACRAL SKIN TEAR NOTED. WOUND CARE CONSULT REQUESTED. PICTURE TAKEN AND PLACED IN CHART. MEPILEX IN PLACE.
--- NOTE | 2021-02-24 18:41 | NUR ---
RN CLOSING NOTE PATIENT IN BED, ON 2L NC WITH NO SIGNS OF LABORED BREATHING. CLEARED BY PT TO AMBULATE TO THE BATHROOM WITH A WALKER AND SUPERVISION. ELMA MIDLINE IN PLACE AND PATENT. ALL NEEDS ATTENDED THROUGHOUT SHIFT. BED LOCKED AND IN LOWEST POSITION, ALL SAFETY MEASURES IMPLEMENTED. WILL ENDORSE TO ENT NURSE NURSE.
[2021-02-24 20:00] VITALS: BP 140/51
--- NOTE | 2021-02-24 20:00 | NUR ---
RN NOTE RECEIVED PT AWAKE, ALERT AND ORIENTED X4. NOT IN ANY DISTRESS. PT DENIES ANY SOB OR PAIN. ON O2 AT 2L. ELMA MIDLINE PATENT AND INTACT, FLUSHES WELL. NOTED WITH SKIN TEAR ON SACRUM, REAPPLIED MEPILEX. KEPT CLEAN AND DRY,REPOSITIONED. ALL SAFETY MEASURES IN PLACE PER PROTOCOL. WILL CONTINUE TO MONITOR.
[2021-02-25 04:00] VITALS: BP 138/67
[2021-02-25] MEDS: TRAMADOL HCL 50 MG TABLET PO SCH ×2 (05:00→16:21)
--- NOTE | 2021-02-25 05:04 | NUR ---
RN NOTES PATIENT REFUSED SCHEDULED TRAMADOL. DENIES PAIN AT THIS TIME. EXPLAINED RISK AND BENEFITS. WILL CONTINUE TO MONITOR.
[2021-02-25 06:16] LABS: BASOPHILS % (AUTO) 0.1 % (0.0-2.0); HEMATOCRIT 26 % (39-51); HEMOGLOBIN 8.4 g/dL (13.5-17.5); LYMPHOCYTES # (AUTO) 0.7 K/uL (0.8-4.8); LYMPHOCYTES % (AUTO) 3.8 % (20.0-44.0); MEAN CORPUSCULAR HGB CONC 33 g/dl (31.0-36.0); MEAN CORPUSCULAR VOLUME 90 fL (80-96); MONOCYTES # (AUTO) 0.9 K/uL (0.1-1.30); MONOCYTES % (AUTO) 4.9 % (2.0-12.0); NEUTROPHILS % (AUTO) 91.2 % (43.0-81.0); PLATELET COUNT (AUTO) 177 K/uL (150-450); RED BLOOD CELL COUNT(AUTO) 2.87 MIL/uL (4.5-6.0); WHITE BLOOD COUNT (AUTO) 17.5 K/uL (4.3-11.0)
--- NOTE | 2021-02-25 06:35 | NUR ---
RN NOTES NO SIGNIFICANT CHANGES DURING SHIFT. PATIENT AOX4. ABLE TO MAKE NEEDS KNOWN. BREATHING EVEN AND UNLABORED, ON OXYGEN AT 2L/MIN, NO SOB NOTED. O2 SAT @ 100 PERCENT. SKIN WARM AND DRY, AFEBRILE. NO COMPLAINTS OF DISCOMFORT. NOTED WITH MIDLINE ON ELMA. NO INFILTRATION NOTED. ASSISTED WITH TURNING AND REPOSITIONING EVERY 2 HOURS. ALL NEEDS ATTENDED. CALL LIGHT WITHIN REACH. WILL ENDORSE TO NEXT SHIFT.
[2021-02-25 07:15] LABS: CALCIUM, SERUM 7.9 mg/dL (8.5-10.1); POTASSIUM 4.2 mmol/L (3.5-5.1)
[2021-02-25 08:00] VITALS: BP 143/78
[2021-02-25] MEDS: CHOLECALCIFEROL 1,000 UNIT TABLET (VIT D3) PO SCH (08:51)
[2021-02-25] MEDS: ESCITALOPRAM OXALATE (10 MG) 10 MG TABLET PO SCH ×2 (08:53→09:00)
[2021-02-25] MEDS: GABAPENTIN 100 MG CAPSULE PO SCH ×3 (08:53→16:21)
[2021-02-25] MEDS: AMLODIPINE BESYLATE 5 MG TABLET PO SCH (08:53)
[2021-02-25] MEDS: predniSONE 20 MG TABLET PO SCH ×2 (08:53→09:00)
[2021-02-25] MEDS: FOLIC ACID 1 MG TABLET PO SCH (08:54)
[2021-02-25] MEDS: LISINOPRIL (20MG) 20 MG TABLET PO SCH (08:54)
[2021-02-25] MEDS: PANTOPRAZOLE 40 MG TABLET.DR PO SCH (08:54)
[2021-02-25] MEDS: TAMSULOSIN 0.4 MG CAP.SR.24H PO SCH (08:54)
[2021-02-25] MEDS: ATORVASTATIN 10 MG TABLET PO SCH (08:54)
[2021-02-25] MEDS: FINASTERIDE (5 MG) 5 MG TABLET PO SCH (08:54)
[2021-02-25] MEDS: ENSURE CLEAR 237 ML LIQUID (MIX BERRY) PO SCH ×3 (08:58→16:21)
[2021-02-25] MEDS: CYCLOPHOSPHAMIDE 25 MG PO SCH (09:00)
[2021-02-25 16:00] VITALS: BP 135/72
--- NOTE | 2021-02-25 18:18 | NUR ---
MS RN NOTE REPORTED TO DR RAMIREZ THAT LEFT FEMORAL VEIN DVT, NO NEW ORDER GIVEN AT THIS TIME
--- NOTE | 2021-02-25 18:57 | NUR ---
1856 LEGAL BILLING CLERK LAURA ORR CALLED AND SAID PATIENT HAS BEEN ACCEPTED AT [facility]. TRANSPORTATION ARRANGED WITH [facility] C/O RIC. RICE DRIER OPERATOR TIME BETWEEN [id number].
--- NOTE | 2021-02-25 19:00 | NUR ---
ms rn notes received pts in bed awake a/ox4 per endorsement pts to be transfer to [facility] for higher level of care .spoke to [facility] tel [phone] he said pts to go to room [id number] , report given to rn bernardo , inform the nurse pts have dvt on right femoral malcolm ram made aware with no order.also hellen from [facility] made aware dvt on right femoral and that md aware with nno . pts is stable afebrile v/s bp 121/60 hr 78 rr 18 temp 97.9 p 0/10 all needs attended too call light within reach .awaiting for transport. olivia aware of transfer to [facility].
--- NOTE | 2021-02-25 19:20 | NUR ---
1919 DR RAMIREZ WAS MADE AWARE OF PATIENT'S TRANSFER TO [facility].
--- NOTE | 2021-02-25 19:47 | NUR ---
1946 CALLED PATIENT'S DISHA AND NOTIFIED HER OF PATIENT'S TRANSFER TO [facility].
[2021-02-25 20:00] VITALS: BP 121/60
--- NOTE | 2021-02-25 21:34 | NUR ---
Ms rn notes PTS WAS GAUGE CONTROLLER by [facility] REPORT GIVEN PTS LEFT THE HOSPITAL IN STABLE CONDITION NO SOB NO DISTRESS NOTED ON R/A SATING 98% P-0/10 , ELMA ML INTACT AND PATENT . MARIBEL MADE AWARE OF TRANSFER TO [facility].
[2021-02-26] MEDS ORDERED: predniSONE 20 MG TABLET PO SCH (09:00)
== END 2021-02-25 21:34 | disposition short-term general hospital (02) | DRG 545 ==
LOC: ER 05:08 → TRANSITION 16:36 → TELE1 17:24 → ICU 02-13 10:28 → TELE1 02-19 12:14 → MEDSG1 02-24 07:32
PROVIDERS: ADMIT Internal Medicine; ATTEND Internal Medicine
PROC: 30233N1 Transfusion of Nonautologous Red Blood Cells into Peripheral Vein, Percutaneous Approach (ICD-10-PCS; principal; 2021-02-12)
PROC: 05H633Z Insertion of Infusion Device into Left Subclavian Vein, Percutaneous Approach (ICD-10-PCS; 2021-02-16)
PROC: B547ZZA Ultrasonography of Left Subclavian Vein, Guidance (ICD-10-PCS; 2021-02-16)
DX: M31.7 Microscopic polyangiitis (principal); N17.0 Acute kidney failure with tubular necrosis; J96.01 Acute respiratory failure with hypoxia; I21.4 Non-ST elevation (NSTEMI) myocardial infarction; D62 Acute posthemorrhagic anemia; R04.89 Hemorrhage from other sites in respiratory passages; I82.411 Acute embolism and thrombosis of right femoral vein; I25.10 Atherosclerotic heart disease of native coronary artery without angina pectoris; E78.5 Hyperlipidemia, unspecified; E87.5 Hyperkalemia; Z20.822 Contact with and (suspected) exposure to COVID-19; Z79.01 Long term (current) use of anticoagulants; Z87.891 Personal history of nicotine dependence; Z95.5 Presence of coronary angioplasty implant and graft; Z86.79 Personal history of other diseases of the circulatory system; I73.9 Peripheral vascular disease, unspecified; I10 Essential (primary) hypertension
CPT/HCPCS: 36410; 36415; 36600; 71045-TC; 80048-TC; 80053-TC; 80061-TC; 80076-TC; 80202-TC; 81001; 82272-TC; 82570-TC; 83516; 83520; 83540-TC; 83605-TC; 83690-TC; 83735-TC; 84100-TC; 84155-TC; 84300-TC; 84484-TC; 85025-TC; 85730-TC; 86225; 86235; 86256; 86850-TC; 87040-TC; 87081-TC; 87086-TC; 93307-TC; 93970-TC; 94799-TC; 97112-TC; 97116-TC; 97530-TC; 99082-TC; A6403; C9113; C9803; G0378; J2270; J2405; J2543; J2930; J3370; J3490; J7030; J7050; J7060; J8530; P9016; Q9967; U0003